=== PATIENT | female | born 1975 | race African-American/Black ===

== ENCOUNTER 2016-12-09 06:50 | Emergency (ER) | payer OTHER ==
[2016-12-09] MEDS ORDERED: PROCHLORPERAZINE EDISYLATE INJ 10 MG/2 ML VIAL IV ONE (07:04)
[2016-12-09] MEDS ORDERED: DIPHENHYDRAMINE HCL 50 MG/ML VIAL IV ONE (07:04)
--- NOTE | 2016-12-09 07:05 | ER Document Report ---
ED General - General Chief Complaint: Headache Stated Complaint: HEADACHE Time Seen by Provider: 12/09/16 07:04 Mode of Arrival: Ambulatory Information source: Patient Notes: 41 yr old female presents with complaints of headache that started yesterday. Pt denies any fevers or chills. Patient notes headache started yesterday was gradual in onset worsened today. Patient notes she had 2 episodes of vomiting after her vomiting episode her headache has since improved. Patient denies any visual disturbance. Patient admits she has not taken blood pressure medication in weeks but is supposed to be on multiple meds TRAVEL OUTSIDE OF THE [place] IN LAST 30 DAYS: No - HPI Onset: Yesterday Onset/Duration: Persistent, Better Quality of pain: Achy Severity: Moderate Pain Level: 3 Associated symptoms: Headache, Nausea, Vomiting Exacerbated by: Denies Relieved by: Denies Similar symptoms previously: Yes Recently seen / treated by doctor: No - Related Data Allergies/Adverse Reactions: iodine [Iodine] Allergy (Verified 12/09/16 08:13) Sulfa (Sulfonamide Antibiotics) Allergy (Verified 12/09/16 08:13) Home Medications: Current Home Medications Sitagliptin Phosphate [Januvia 25 mg Tablet] 1 tab PO DAILY 12/09/16 [History] Past Medical History - Social History Smoking Status: Never Smoker Cigarette use (# per day): No Chew tobacco use (# tins/day): No Smoking Education Provided: No Family History: Reviewed & Not Pertinent Patient has suicidal ideation: No Patient has homicidal ideation: No - Past Medical History Cardiac Medical History: Reports: Hx Hypertension Pulmonary Medical History: Reports: Hx Asthma Endocrine Medical History: Reports: Hx Diabetes Mellitus Type 2 Renal/ Medical History: Denies: Hx Peritoneal Dialysis Past Surgical History: Reports: Hx Breast Surgery - cyst removals, Hx Cholecystectomy - Immunizations Hx Diphtheria, Pertussis, Tetanus Vaccination: - unknown Review of Systems - Review of Systems Notes: REVIEW OF SYSTEMS: CONSTITUTIONAL : Denies fever, chills, or sweats. Denies recent illness. EENT: Denies eye, ear, throat, or mouth pain or symptoms. Denies nasal or sinus congestion or discharge. Denies throat, tongue, or mouth swelling or difficulty swallowing. CARDIOVASCULAR: Denies chest pain. Denies palpitations or racing or irregular heart beat. Denies ankle edema. RESPIRATORY: Denies cough, cold, or chest congestion. Denies shortness of breath, difficulty breathing, or wheezing. GASTROINTESTINAL: Admits to nausea vomiting GENITOURINARY: Denies difficulty urinating, painful urination, burning, frequency, blood in urine, or discharge. FEMALE GENITOURINARY: Denies vaginal bleeding, heavy or abnormal periods, irregular periods. Denies vaginal discharge or odor. MUSCULOSKELETAL: Denies back or neck pain or stiffness. Denies joint pain or swelling. SKIN: Denies rash, lesions or sores. HEMATOLOGIC : Denies easy bruising or bleeding. LYMPHATIC: Denies swollen, enlarged glands. NEUROLOGICAL: Admits headache PSYCHIATRIC: Denies anxiety or stress. Denies depression, suicidal ideation, or homicidal ideation. ALL OTHER SYSTEMS REVIEWED AND NEGATIVE. PHYSICAL EXAMINATION: GENERAL: Well-appearing, well-nourished and in no acute distress. HEAD: Atraumatic, normocephalic. EYES: Pupils equal round and reactive to light, extraocular movements intact, conjunctiva are normal. ENT: Nares patent, oropharynx clear without exudates. Moist mucous membranes. NECK: Normal range of motion, supple without lymphadenopathy LUNGS: Breath sounds clear to auscultation bilaterally and equal. No wheezes rales or rhonchi. HEART: Regular rate and rhythm without murmurs ABDOMEN: Soft, nontender, nondistended abdomen. No guarding, no rebound. No masses appreciated. Female : deferred Musculoskeletal: Normal range of motion, no pitting or edema. No cyanosis. NEUROLOGICAL: Cranial nerves grossly intact. Normal speech, normal gait. Normal sensory, motor exams PSYCH: Normal mood, normal affect. SKIN: Warm, Dry, normal turgor, no rashes or lesions noted. Dictation was performed using [employer] voice recognition software Physical Exam - Vital signs Vitals: Temp Pulse Resp BP Pulse Ox 98.4 F 103 H 20 192/116 H 99 12/09/16 06:50 12/09/16 06:50 12/09/16 06:50 12/09/16 06:50 12/09/16 06:50 Course - Re-evaluation Re-evalutation: 12/09/16 07:33 Patient overall looks quite well, she is noted to be hypertensive and given a complaint of headache will be sent for CT emergently. 12/09/16 08:58 Patient's headache is completely resolved, we discussed lumbar puncture patient wishes to defer at this time I spoke with the patient at length in regards to having a lumbar puncture performed. Pt was told the risks and benefits of the procedure in length. I do not believe the patient should leave without the LP being performed but the patient is alert oriented x4, understands the risks and benefits of staying and leaving including disability and . Pt understands that she can return at any time for further care and is more than welcome to do so. Patient was made aware of her hyperglycemia as well , pt will be written for her lisinpril hctz , unsure of dose After performing a Medical Screening Examination, I estimate there is LOW risk for ACUTE GLAUCOMA, TEMPORAL ARTERITIS, MENINGITIS, INCRANIAL HEMORRHAGE, or ISCHEMIC STROKE thus I consider the discharge disposition reasonable. I have reevaluated this patient multiple times and no significant life threatening changes are noted. The patient and I have discussed the diagnosis and risks, and we agree with discharging home with close follow-up with the understanding that symptoms and presentations can change. We also discussed returning to the Emergency Department immediately if new or worsening symptoms occur. We have discussed the symptoms which are most concerning (e.g., changing or worsening symptoms, new numbness or weakness, vomiting, fever) that necessitate immediate return. - Vital Signs Vital signs: Temp Pulse Resp BP Pulse Ox 98.4 F 103 H 20 192/116 H 99 12/09/16 06:50 12/09/16 06:50 12/09/16 06:50 12/09/16 06:50 12/09/16 06:50 - Laboratory Result Diagrams: 12/09/16 07:55 12/09/16 07:55 Laboratory results interpreted by me: 12/09/16 12/09/16 07:55 07:55 RDW 15.9 H BUN 4 L Creatinine 0.43 L Glucose 337 H - Diagnostic Test Radiology reviewed: Image reviewed, Reports reviewed - No acute abnormality Discharge - Discharge Clinical Impression: Hyperglycemia Hypertension Qualifiers: Hypertension type: essential hypertension Qualified Code(s): I10 - Essential ( primary) hypertension Headache Qualifiers: Headache type: unspecified Headache chronicity pattern: acute headache Intractability: not intractable Qualified Code(s): R51 - Headache Condition: Stable Disposition: HOME, SELF-CARE Instructions: Headache ([facility]) Prescriptions: Lisinopril/Hydrochlorothiazide [Lisinopril-Hctz 10-12.5 mg Tab] 1 each PO DAILY #30 tablet Referrals: LAMAR DARDEN MD [Primary Care Provider] - Follow up tomorrow
[2016-12-09] MEDS ORDERED: CLONIDINE HCL 0.1 MG TABLET PO ONE (07:25)
--- NOTE | 2016-12-09 07:42 | RADIOLOGY REPORT (SQ) ---
EXAM DESCRIPTION: CT HEAD WITHOUT COMPLETED DATE/TIME: 12/09/2016 7:31 am REASON FOR STUDY: headache COMPARISON: None. TECHNIQUE: Axial images acquired through the brain without intravenous contrast. Images reviewed wi th bone, brain and subdural windows. Images stored on PACS. All CT scanners at this facility use dose modulation, iterative reconstruction, and/or weight based d osing when appropriate to reduce radiation dose to as low as reasonably achievable (ALARA). [facility]: Dose Right [facility]: CareDose [facility]: Dose Right [facility]: Teradose 4D [facility]: AlpineReplay RADIATION DOSE: Up-to-date CT equipment and radiation dose reduction techniques were employed. CTDIv ol: 48.6 mGy. DLP: 881 mGy-cm. mGy. LIMITATIONS: None. FINDINGS: VENTRICLES: Normal size and contour. CEREBRUM: No masses. No hemorrhage. No midline shift. Normal connell/white matter differentiation. N o evidence for acute infarction. CEREBELLUM: No masses. No hemorrhage. No alteration of density. No evidence for acute infarction. EXTRAAXIAL SPACES: No fluid collections. No masses. ORBITS AND GLOBE: No intra- or extraconal masses. Normal contour of globe without masses. CALVARIUM: No fracture. PARANASAL SINUSES: No fluid or mucosal thickening. SOFT TISSUES: No mass or hematoma. OTHER: No other significant finding. IMPRESSION: NORMAL BRAIN CT WITHOUT CONTRAST. TECHNICAL DOCUMENTATION: JOB ID: [id number] Quality ID # [id number]: Final reports with documentation of one or more dose reduction techniques (e.g., Au tomated exposure control, adjustment of the mA and/or kV according to patient size, use of iterative reconstruction technique) 2010 [employer]- All Rights Reserved
[2016-12-09 08:11] LABS: ABSOLUTE EOSINOPHILS # (AUTO) 0.1 10^3/uL (0.0-0.6); ABSOLUTE LYMPHOCYTES (AUTO) 1.8 10^3/uL (0.5-4.7); ABSOLUTE MONOCYTES (AUTO) 0.4 10^3/uL (0.1-1.4); ABSOLUTE NEUT (AUTO) 7.8 10^3/uL (1.7-8.2); BASOPHILS % (AUTO) 0.3 % (0-2); EOSINOPHILS % (AUTO) 0.7 % (0-6); HEMATOCRIT 38.2 % (36.0-47.0); HEMOGLOBIN 13.1 g/dL (12.0-15.5); HGB HCT DIFFERENCE 1.1; LYMPHOCYTES % (AUTO) 17.7 % (13-45); MEAN CORPUSCULAR HGB CONC 34.4 g/dL (32.0-36.0); MEAN CORPUSCULAR VOLUME 84 fl (80-97); MONOCYTES % (AUTO) 4.4 % (3-13); RED BLOOD COUNT 4.54 10^6/uL (3.72-5.28); RED CELL DISTRIBUTION WIDTH 15.9 % (11.5-14.0); SEGMENTED NEUTROPHILS % (AUTO) 76.9 % (42-78); WHITE BLOOD COUNT 10.2 10^3/uL (4.0-10.5)
[2016-12-09 08:28] LABS: ALANINE AMINOTRANSFERASE 19 U/L (9-52); ALKALINE PHOSPHATASE 90 U/L (38-126); ANION GAP 8 (5-19); ASPARTATE AMINO TRANSFERASE 19 U/L (14-36); BILIRUBIN,DIRECT 0.3 mg/dL (0.0-0.4); BILIRUBIN,TOTAL 0.7 mg/dL (0.2-1.3); BLOOD UREA NITROGEN 4 mg/dL (7-20); CARBON DIOXIDE 29 mmol/L (22-30); CHLORIDE 100 mmol/L (98-107); CREATININE RESULT 0.43 mg/dL (0.52-1.25); GLUCOSE 337 mg/dL (75-110); POTASSIUM 4.3 mmol/L (3.6-5.0); SODIUM 137.2 mmol/L (137-145); TOTAL PROTEIN 7.2 g/dL (6.3-8.2)
[2016-12-09 08:58] VITALS: BP 167/102
== END 2016-12-09 09:13 | disposition home or self-care (01) ==
LOC: ER 06:50
DX: I10 Essential (primary) hypertension (principal); T46.4X6A Underdosing of angiotensin-converting-enzyme inhibitors, initial encounter; T50.2X6A Underdosing of carbonic-anhydrase inhibitors, benzothiadiazides and other diuretics, initial encounter; Z91.128 Patient's intentional underdosing of medication regimen for other reason; Z91.14 Patient's other noncompliance with medication regimen; E11.65 Type 2 diabetes mellitus with hyperglycemia; R51 Headache; R11.2 Nausea with vomiting, unspecified; Z88.2 Allergy status to sulfonamides
CPT/HCPCS: 99284; 96374; 96375; 36415; 85025; 80053; 70450; J1200; J0780

== ENCOUNTER → 2017-04-29 | Outpatient (CLI) | payer OTHER ==
--- NOTE | 2017-04-29 10:19 | WOMENS IMAGING REPORT ---
EXAM DESCRIPTION: TRANSVAGINAL ULTRASOUND COMPLETED DATE/TIME: 04/29/2017 8:20 am REASON FOR STUDY: N92.0 Z12.31 ENCNTR SCREEN MAMMOGRAM FOR MALIGNANT NEOPLASM OF AFSHIN N92.0 EXCESSI VE AND FREQUENT MENSTRUATION WITH REGULAR CYCLE LMP 04/09/2017 COMPARISON: 09/02/2015 TECHNIQUE: Dynamic and static grayscale images acquired of the pelvis via transvaginal approach and recorded on PACS. Additional selected color Doppler and spectral images recorded. LIMITATIONS: None. FINDINGS: UTERUS: Contour normal. No mass. ENDOMETRIAL STRIPE: No focal or generalized thickening. No masses. CERVIX: A nabothian cyst is present. RIGHT OVARY: No masses. Ovary is somewhat prominent in size but appears to be relatively heterogeneo us but slightly hyperechoic. RIGHT OVARY DOPPLER: Normal arterial vascular flow without evidence for torsion. LEFT OVARY: No masses. LEFT OVARY DOPPLER: Normal arterial vascular flow without evidence for torsion. FREE FLUID: None noted. OTHER: No other significant finding. MEASUREMENTS: UTERUS: 9.7 x 4.9 x 5.3 cm. ENDOMETRIAL STRIPE: 7.5 mm. RIGHT OVARY: 5.1 x 4.8 x 4.4 cm. LEFT OVARY: 2.9 x 2.1 x 2.2 cm. IMPRESSION: The right ovary is somewhat prominent. No cysts are seen. No definable ovarian masses s een. Consider CT of the pelvis for further evaluation. TECHNICAL DOCUMENTATION: JOB ID: [id number] [employer]- All Rights Reserved
--- NOTE | 2017-04-29 11:18 | WOMENS IMAGING REPORT ---
EXAM DESCRIPTION: 3D SCREENING MAMMO BILAT COMPLETED DATE/TIME: 04/29/2017 7:45 am REASON FOR STUDY: ROUTINE SCREENING Z12.31 Z12.31 ENCNTR SCREEN MAMMOGRAM FOR MALIGNANT NEOPLASM OF AFSHIN N92.0 EXCESSIVE AND FREQUENT MENSTRUATION WITH REGULAR CYCLE COMPARISON: 2013 TECHNIQUE: Standard craniocaudal and mediolateral oblique views of each breast recorded using digita l acquisition and breast tomosynthesis. LIMITATIONS: None. FINDINGS: No masses, calcifications or architectural distortion. No areas of suspicion. Read with the assistance of CAD. .[facility] - R2 Cenova Version 1.3 .[facility] - R2 Cenova Version 1.3 .[facility] - R2 Cenova Version 2.4 .[facility] [place] - R2 Cenova Version 2.4 .[facility] - R2 Research And Evaluation Analyst Version 9.2 IMPRESSION: NORMAL MAMMOGRAM. BIRADS 1. BREAST DENSITY: b. There are scattered areas of fibroglandular density. BIRAD: 1 NEGATIVE RECOMMENDATION: ROUTINE SCREENING COMMENT: The patient has been notified of the results by letter per MQSA requirements. Additional no tification policies are in place for contacting patient with suspicious or incomplete findings. Quality ID #[id number]: The [employer] recommends an annual screening mammogram for women aged 40 years or over. This facility utilizes a reminder system to ensure that all patients receive reminder letters, and/or direct phone calls for appointments. This includes reminders for routine scr eening mammograms, diagnostic mammograms, or other Breast Imaging Interventions when appropriate. Th is patient will be placed in the appropriate reminder system. The [employer] (ACR) has developed recommendations for screening MRI of the breast s in certain patient populations, to be used in conjunction with mammography. Breast MRI surveillanc e may be appropriate for women with more than 20% lifetime risk of developing breast cancer as deter mined by genetic testing, significant family history of the disease, or history of mantle radiation f or Hodgkins Disease. ACR Practice Guidelines 2008. DBT Technology DBT is a type of tomographic mammography. With conventional mammography, overlapping breast tissue ma y make lesions difficult to detect, even with good compression. DBT uses an x-ray tube that rotates a round the breast, taking images at different angles. These images are then combined to create thin sl ices of the breast that the radiologist can view as a 3D reconstruction. The [employer] unit can perform full-field digital mammograms (2D imaging); or DBT (3D imaging); or both, in a combination mode that quickly performs both the mammogram and the tomosynthesis scan while the breast is still compressed. PQRS 6045F: Fluoroscopic imaging is not utilized for breast tomosynthesis. TECHNICAL DOCUMENTATION: FINDING NUMBER: (1) ASSESSMENT: (1) JOB ID: [id number] [employer]- All Rights Reserved
== END ==
LOC: WI 07:42
PROVIDERS: ATTEND Physician Assistant
DX: Z12.31 Encounter for screening mammogram for malignant neoplasm of breast (principal); N92.0 Excessive and frequent menstruation with regular cycle
CPT/HCPCS: 77063; 76830; G0202; 77067

== ENCOUNTER 2017-06-11 07:02 | Emergency (ER) | payer OTHER ==
--- NOTE | 2017-06-11 08:03 | ER Document Report ---
HPI - HPI Pain Level: 4 Notes: Patient is a 41-year-old female with a history of hypertension and type 2 diabetes who presents to the ED complaining of nasal congestion/discharge, subjective fever, chills, body ache, decreased p.o. intake, loose stool over the last couple days. Patient states that she has not noticed much of a cough. She is still able to intake fluids. She is urinating normally otherwise. She has not been using any [id number] meds for symptoms. Patient states that she was sent home from work and needs a work note to go back tomorrow which is her main reason of coming in. Patient states she has been exposed to multiple illnesses at the workplace. Denies any headache, current fever, neck pain, sore throat, chest pain, palpitations, syncope, cough, shortness of breath , wheeze, dyspnea, abdominal pain, nausea/vomiting, urinary retention, dysuria, hematuria, numbness/tingling, saddle anesthesia, muscle paralysis/weakness, or rash. - ROS Systems Reviewed and Negative: Yes All other systems reviewed and negative - CONSTITUTIONAL Constitutional: REPORTS: Fever, Chills - EENT EENT: REPORTS: Sore Throat Past Medical History - Social History Smoking Status: Current Every Day Smoker Frequency of alcohol use: None Drug Abuse: None Family History: Reviewed & Not Pertinent Patient has suicidal ideation: No Patient has homicidal ideation: No - Past Medical History Cardiac Medical History: Reports: Hx Hypertension Pulmonary Medical History: Reports: Hx Asthma Endocrine Medical History: Reports: Hx Diabetes Mellitus Type 2 Renal/ Medical History: Denies: Hx Peritoneal Dialysis Past Surgical History: Reports: Hx Breast Surgery - cyst removals, Hx Cholecystectomy - Immunizations Hx Diphtheria, Pertussis, Tetanus Vaccination: - unknown Vertical Provider Document - CONSTITUTIONAL Agree With Documented VS: Yes Notes: PHYSICAL EXAMINATION: GENERAL: Well-appearing, well-nourished and in no acute distress. A&Ox4 HEAD: Atraumatic, normocephalic. EYES: Pupils equal round and reactive to light, extraocular movements intact, sclera anicteric, conjunctiva are normal. ENT: EAC clear b/l. TM's intact b/l without erythema, fluid, or perforation. Nares patent and with clear discharge. oropharynx mild erythema without exudates. 1+ tonsilar hypertrophy without erythema or exudate. No palatine shift. Uvula midline. No tongue protrusion. No drooling, hoarseness, or airway compromise. Moist mucous membranes. No sinus tenderness. NECK: Normal range of motion, supple without lymphadenopathy. No rigidity/ meningismus. LUNGS: Breath sounds clear to auscultation bilaterally and equal. No wheezes rales or rhonchi. HEART: Regular rate and rhythm without murmurs, rubs, gallops. ABDOMEN: Soft, nontender, nondistended abdomen. No guarding, no rebound. No masses appreciated. Normal bowel sounds present. No CVA tenderness bilaterally. No hepatosplenomegaly. Back: FROM. Strength 5+/5. No focal deficits distal. Reflexes 2+. SLR neg b/l. NEUROLOGICAL: Normal speech, normal gait. Normal sensory, motor exams PSYCH: Normal mood, normal affect. SKIN: Warm, Dry, normal turgor, no rashes or lesions noted. - INFECTION CONTROL TRAVEL OUTSIDE OF THE [place] IN LAST 30 DAYS: No - RESPIRATORY O2 Sat by Pulse Oximetry: 99 Course - Re-evaluation Re-evalutation: 06/11/17 08:38 Patient is an afebrile, well-hydrated, 41-year-old female who presents to the ED with an acute URI, suspect viral at this time. Vitals are stable. PE is otherwise unremarkable. Rapid influenza was negative. No other labs or imaging warranted at this time based on H&P. Work note provided. Low suspicion for any ACS, PE, pneumothorax, pericarditis, dissection, respiratory compromise, severe dehydration, sepsis, meningitis, or other systemic emergent condition at this time. Patient is aware that her condition can change from initial presentation and she needs to monitor symptoms closely and seek medical attention for any acute changes. Recommend conservative measures for symptoms. Recheck with your PCM in 3-5 days. Return to the ED with any worsening/ concerning symptoms otherwise as reviewed in discharge. Patient is in agreement. - Vital Signs Vital signs: Temp Pulse Resp BP Pulse Ox 98.6 F 106 H 18 196/111 H 99 06/11/17 07:24 06/11/17 07:24 06/11/17 07:30 06/11/17 07:30 06/11/17 07:30 Discharge - Discharge Clinical Impression: Acute URI Condition: Stable Disposition: HOME, SELF-CARE Instructions: Upper Respiratory Illness ([facility]) Additional Instructions: Maintain adequate fluid intake Take meds as directed tylenol/ibuprofen as needed Monitor for any worsening symptoms over the counter cold medication as needed for symptoms Humidified air may help F/u: with your PCM in 3-5 days for a recheck Return to the ED with any fever, worsening pain, chest pain, palpitations, syncope, worsening [place], neck pain/stiffness, shortness of breath, wheezing, drooling, trouble swallowing/breathing, abdominal pain, n/v/d, rash, or worsening/concerning symptoms otherwise. Forms: Elevated Blood Pressure, Smoking Cessation Education, Return to Work Referrals: LAMAR DARDEN MD [Primary Care Provider] - Follow up in 3-5 days
[2017-06-11 08:34] LABS: A TYPE INFLUENZA AG NEGATIVE (NEGATIVE); B INFLUENZA AG NEGATIVE (NEGATIVE)
[2017-06-11 09:16] VITALS: BP 144/107
== END 2017-06-11 09:07 | disposition home or self-care (01) ==
LOC: ER 07:02
DX: J06.9 Acute upper respiratory infection, unspecified (principal); M79.1 Myalgia; I10 Essential (primary) hypertension; E11.9 Type 2 diabetes mellitus without complications; F17.200 Nicotine dependence, unspecified, uncomplicated; Z90.49 Acquired absence of other specified parts of digestive tract
CPT/HCPCS: 87804; 99283

== ENCOUNTER 2017-07-27 07:40 | Emergency (ER) | payer SELFPAY ==
--- NOTE | 2017-07-27 08:02 | ER Document Report ---
ED General - General Chief Complaint: Toe Injury Stated Complaint: TOE INJURY Time Seen by Provider: 07/27/17 07:52 Mode of Arrival: Wheelchair Information source: Patient TRAVEL OUTSIDE OF THE [place] IN LAST 30 DAYS: No - HPI Notes: 42-year-old female with history of diabetes presents today with complaints of having right pinky toe pain that started after she accidentally dropped a table on it 4 days ago, states she reinjured it yesterday when she accidentally stubbed her toe again on the door. Reports pain is 5 out of 10, throbbing achy. Worse with movement, better at rest. Has not tried any icing or heat, has tried awnb-yrd-flslfrz ibuprofen with some relief. Unable to place complete weight on foot. Denies any other area of injury. Denies fevers, chills, chest pain,palpitations, shortness of breath, dyspnea, nausea, vomiting, diarrhea, abdominal pain, hematuria,blurred vision, double vision, loss of vision, speech changes, LH, dizziness, syncope, headaches, wheezing, ST , URI, neck pain, weakness, bowel or bladder dysfunction, saddle anesthesia, numbness or tingling in bilateral upper or lower extremities equally, muscle paralysis, weakness in bilateral upper or lower extremities equally or rash. Denies IV drug use. - Related Data Allergies/Adverse Reactions: iodine [Iodine] Allergy (Verified 07/27/17 07:44) Penicillins Allergy (Verified 07/27/17 07:44) Sulfa (Sulfonamide Antibiotics) Allergy (Verified 07/27/17 07:44) Past Medical History - General Information source: Patient - Social History Smoking Status: Never Smoker Family History: Reviewed & Not Pertinent - Past Medical History Cardiac Medical History: Reports: Hx Hypertension Pulmonary Medical History: Reports: Hx Asthma Endocrine Medical History: Reports: Hx Diabetes Mellitus Type 2 Renal/ Medical History: Denies: Hx Peritoneal Dialysis Past Surgical History: Reports: Hx Breast Surgery - cyst removals, Hx Cholecystectomy - Immunizations Hx Diphtheria, Pertussis, Tetanus Vaccination: - unknown Review of Systems - Review of Systems Notes: REVIEW OF SYSTEMS: CONSTITUTIONAL : Denies fever, chills, or sweats. Denies recent illness. EENT: Denies eye, ear, throat, or mouth pain or symptoms. Denies nasal or sinus congestion or discharge. Denies throat, tongue, or mouth swelling or difficulty swallowing. CARDIOVASCULAR: Denies chest pain. Denies palpitations or racing or irregular heart beat. Denies ankle edema. RESPIRATORY: Denies cough, cold, or chest congestion. Denies shortness of breath, difficulty breathing, or wheezing. GASTROINTESTINAL: Denies abdominal pain or distention. Denies nausea, vomiting , or diarrhea. Denies blood in vomitus, stools, or per rectum. Denies black, tarry stools. Denies constipation. GENITOURINARY: Denies difficulty urinating, painful urination, burning, frequency, blood in urine, or discharge. FEMALE GENITOURINARY: Denies vaginal bleeding, heavy or abnormal periods, irregular periods. Denies vaginal discharge or odor. MUSCULOSKELETAL: Denies back or neck pain or stiffness. Denies joint pain or swelling. SKIN: right 5th toe swelling and pain. Denies rash, lesions or sores. HEMATOLOGIC : Denies easy bruising or bleeding. LYMPHATIC: Denies swollen, enlarged glands. NEUROLOGICAL: Denies confusion or altered mental status. Denies passing out or loss of consciousness. Denies dizziness or lightheadedness. Denies headache. Denies weakness or paralysis or loss of use of either side. Denies problems with gait or speech. Denies sensory loss, numbness, or tingling. Denies seizures. PSYCHIATRIC: Denies anxiety or stress. Denies depression, suicidal ideation, or homicidal ideation. ALL OTHER SYSTEMS REVIEWED AND NEGATIVE. PHYSICAL EXAMINATION: GENERAL: Well-appearing, well-nourished and in no acute distress. HEAD: Atraumatic, normocephalic. EYES: Pupils equal round and reactive to light, extraocular movements intact, conjunctiva are normal. ENT: Nares patent, oropharynx clear without exudates. Moist mucous membranes. NECK: Normal range of motion, supple without lymphadenopathy LUNGS: Breath sounds clear to auscultation bilaterally and equal. No wheezes rales or rhonchi. HEART: Regular rate and rhythm without murmurs ABDOMEN: Soft, nontender, nondistended abdomen. No guarding, no rebound. No masses appreciated. Female : deferred Musculoskeletal: Normal range of motion, no pitting or edema. No cyanosis. Right fifth tarsal with swelling, erythema, warmth to touch. Unable to palpate a step-off. No open lesions. squeeze test negative. dtr +2 BLE. Limited APROM. distal pulses + 2 in BUE. full motor and sensory function. No vascular compromise. Ankle exam within normal limits. No noted lacerations, lesions, ulcers or break in the skin. Cap refill less than 3 seconds. Full motor and sensory function in LISA. DTRs +2 in bilateral lower extremities equally. No deformity noted of right ankle, foot or toe. Negative kanavels sign. No open wounds or drainage from toe or foot. No vascular compromise. NEUROLOGICAL: Cranial nerves grossly intact. Normal speech, normal gait. Normal sensory, motor exams PSYCH: Normal mood, normal affect. SKIN: Warm, Dry, normal turgor, no rashes or lesions noted. Dictation was performed using [employer] voice recognition software Physical Exam - Vital signs Vitals: Temp Pulse Resp BP Pulse Ox 98.8 F 114 H 18 191/110 H 99 07/27/17 07:45 07/27/17 07:45 07/27/17 07:45 07/27/17 07:45 07/27/17 07:45 Course - Re-evaluation Re-evalutation: 07/27/17 09:21 42-year-old healthy-appearing female presents with right toe pain after trauma to right fifth toe. she is afebrile. See negative for any acute fracture on right foot. The erythema around toe, with induration went to touch will treat for developing cellulitis.Dr. Darion Odonnell, ER attending at bedside at 0915 for further evaluation due to swelling and pain with toe movement. Denies that this patient does not need any orthopedic immediate evaluation at this time. Marked area where redness appeared on right fifth toe, advised patient if redness extends outside of this area to return to the emergency room as soon as possible. We will start her on oral clindamycin, 300 mg every 6 hours for cellulitis. Take vonn-mjb-umzihtx ibuprofen and Tylenol as needed for pain she given a postop shoe to help displace weight on the foot. Outpatient follow-up with material control specialist within 3 days. Follow-up with primary care provider within 3 days. She is blood pressure came down as well as heart rate. Patient stated she took her blood pressure this morning had not kicked in when she first came to the emergency room. Patient was discharged home with strict instructions to return if any pain becomes worse, any increased swelling, any fevers or chills, etc. to return to the emergency room as soon as possible.She verbalized understanding of this plan of care and agreed with plan of care. She was discharged home without incident. After performing a Medical Screening Examination, I estimate there is LOW risk for CLOSED/OPEN FRACTURE, COMPARTMENT SYNDROME, TENDON RUPTURE, ACUTE NEUROVASCULAR INJURY, or RETAINED FOREIGN BODY, thus I consider the discharge disposition reasonable. Also, there is no evidence or peritonitis, sepsis, or toxicity. I have reevaluated this patient multiple times and no significant life threatening changes are noted. The patient and I have discussed the diagnosis and risks, and we agree with discharging home with close follow-up with the understanding that symptoms and presentations can change. We also discussed returning to the Emergency Department immediately if new or worsening symptoms occur. We have discussed the symptoms which are most concerning (e.g., changing or worsening pain, fever, numbness, weakness, cool or painful digits) that necessitate immediate return. - Vital Signs Vital signs: Temp Pulse Resp BP Pulse Ox 98.5 F 85 18 155/102 H 99 07/27/17 09:19 07/27/17 09:19 07/27/17 09:19 07/27/17 09:19 07/27/17 09:19 Discharge - Discharge Clinical Impression: Cellulitis of toe of right foot Condition: Good Disposition: HOME, SELF-CARE Instructions: Cellulitis ([facility]) Additional Instructions: CELLULITIS: You have an infection of your skin and underlying soft tissues called cellulitis. This is due to bacteria, which can enter through any break in the skin, or even through an irritated hair follicle. Untreated, cellulitis will usually worsen. Antibiotics are required. Usually, warm packs or warm soaks, and elevation of the infected area are recommended. You should start getting better within 24 to 36 hours. Most infections respond quickly to the right medication. Follow-up care is important, however, to check for abscess (boil) formation, unsuspected foreign body, or resistant infection. If you develop fever, chills, or if the area of infection is becoming rapidly more swollen or painful, call the doctor at once. MRSA CELLULITIS: You have an infection of your skin and underlying soft tissues called cellulitis. This is due to bacteria, which can enter through any break in the skin, or even through an irritated hair follicle. Untreated, cellulitis will usually worsen and may form an abscess which requires draining. Although many bacterial organisms can cause cellulitis and abscess formations, the most likely bacteria is Methicillin-Resistant Staph Aureus, or MRSA for short. Antibiotics are required. Usually, warm packs or warm soaks, and elevation of the infected area are recommended. You should start getting better within 24 to 36 hours. Most infections respond quickly to the right medication. Follow-up care is important, however, to check for abscess (boil) formation, unsuspected foreign body, or resistant infection. If you develop fever, chills, or if the area of infection is becoming rapidly more swollen or painful, call the doctor at once. ANTIBIOTIC THERAPY: You have been given an antibiotic prescription. It's important that you take all the medication, unless instructed otherwise by your physician. Failure to complete the entire course can result in relapse of your condition. Common side effects of antibiotics include nausea, intestinal cramping, or diarrhea. Women may develop vaginal yeast infections, and babies can get yeast (thrush) in the mouth following the use of antibiotics. Contact your physician if you develop significant side effects from this medication. Allergy to this antibiotic can result in hives, wheezing, faintness, or itching. If symptoms of allergy occur, stop the medication and call the doctor. CLINDAMYCIN: You have been given a prescription for the antibiotic clindamycin. It is often prescribed for infections in the mouth, such as dental infections or abscesses, and for skin infections due to MRSA. It's important that you take all the medication, unless instructed otherwise by your physician. Failure to complete the entire course can result in relapse of your condition. Common side effects of antibiotics include nausea, intestinal cramping, or diarrhea. Women may develop vaginal yeast infections, and babies can get yeast (thrush) in the mouth following the use of antibiotics. Contact your physician if you develop significant side effects from this medication. Allergy to this antibiotic can result in hives, wheezing, faintness, or itching. If symptoms of allergy occur, stop the medication and call the doctor. If redness extends out of marked area, any fevers or chills, worsening pain, increased swelling, etc. return to the emergency room immediately. FOLLOW-UP CARE: If you have been referred to a physician for follow-up care, call the physician s office for an appointment as you were instructed or within the next two days. If you experience worsening or a significant change in your symptoms, notify the physician immediately or return to the Emergency Department at any time for re-evaluation. Return immediately for any new or worsening symptoms. Follow up with primary care provider, call tomorrow to make followup appointment. Prescriptions: Clindamycin HCl 300 mg PO Q6H #28 capsule Forms: Return to Work Referrals: TIERNEY PEÑA DO [ACTIVE STAFF] - Follow up in 3-5 days EMEKA NOLASCO MD [ACTIVE STAFF] - Follow up in 3-5 days
--- NOTE | 2017-07-27 08:29 | RADIOLOGY REPORT (SQ) ---
EXAM DESCRIPTION: FOOT RIGHT COMPLETE COMPLETED DATE/TIME: 07/27/2017 8:18 am REASON FOR STUDY: trauma to right foot COMPARISON: None. NUMBER OF VIEWS: Three views. TECHNIQUE: AP, lateral and oblique radiographic images acquired of the right foot. LIMITATIONS: None. FINDINGS: MINERALIZATION: Normal. BONES: No acute fracture or dislocation. No worrisome bone lesions. JOINTS: No effusions. SOFT TISSUES: No soft tissue swelling. No foreign body. OTHER: Large posterior heel spur reflected by calcification at the insertion of the Achilles tendon. IMPRESSION: No acute posttraumatic changes. Large heel spur TECHNICAL DOCUMENTATION: JOB ID: [id number] [employer]- All Rights Reserved Reading location - IP/workstation name: [email or web address]
[2017-07-27] MEDS ORDERED: CLINDAMYCIN HCL 150 MG CAPSULE PO ONE (08:46)
[2017-07-27] MEDS ORDERED: HYDROCODONE/ACETAMINOPHEN 5-325 MG (6 TAB/ER DISP) PO PRN (09:17)
[2017-07-27 09:21] VITALS: BP 155/102
== END 2017-07-27 09:35 | disposition home or self-care (01) ==
LOC: ER 07:40
DX: L03.031 Cellulitis of right toe (principal); E11.9 Type 2 diabetes mellitus without complications; J45.909 Unspecified asthma, uncomplicated; I10 Essential (primary) hypertension; Z79.899 Other long term (current) drug therapy; Z88.0 Allergy status to penicillin; Z88.2 Allergy status to sulfonamides
CPT/HCPCS: 99283

== ENCOUNTER 2017-11-07 07:57 | Emergency (ER) | payer OTHER ==
[2017-11-07 08:05] VITALS: BP 177/93
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
== END 2017-11-07 08:51 | disposition home or self-care (01) ==
LOC: ER 07:57
DX: M79.1 Myalgia (principal); M54.6 Pain in thoracic spine; M79.601 Pain in right arm; M79.602 Pain in left arm; V87.7XXA Person injured in collision between other specified motor vehicles (traffic), initial encounter; I10 Essential (primary) hypertension; J45.909 Unspecified asthma, uncomplicated; E11.9 Type 2 diabetes mellitus without complications
CPT/HCPCS: 99283

== ENCOUNTER 2018-01-29 09:12 | Emergency (ER) | payer OTHER ==
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
[2018-01-29 09:22] VITALS: BP 193/109
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
== END 2018-01-29 10:19 | disposition home or self-care (01) ==
LOC: ER 09:12
DX: S92.531A Displaced fracture of distal phalanx of right lesser toe(s), initial encounter for closed fracture (principal); S91.204A Unspecified open wound of right lesser toe(s) with damage to nail, initial encounter; W22.8XXA Striking against or struck by other objects, initial encounter; E11.9 Type 2 diabetes mellitus without complications
CPT/HCPCS: 99283

== ENCOUNTER 2018-05-14 09:29 | Emergency (ER) | payer OTHER ==
[2018-05-14] MEDS ORDERED: SITAGLIPTIN PHOSPHATE 50 MG TABLET PO ONE (09:56)
[2018-05-14] MEDS ORDERED: HYDROCHLOROTHIAZIDE 25 MG TABLET PO ONE (09:56)
[2018-05-14] MEDS ORDERED: CLONIDINE HCL 0.1 MG TABLET PO ONE (09:57)
[2018-05-14] MEDS ORDERED: AMLODIPINE BESYLATE 5 MG TABLET PO ONE (09:57)
--- NOTE | 2018-05-14 10:02 | ER Document Report ---
ED Medical Screen (RME) - General Chief Complaint: Skin Sore(s) Stated Complaint: FOOT PAIN Time Seen by Provider: 05/14/18 09:45 Mode of Arrival: Ambulatory Information source: Patient TRAVEL OUTSIDE OF THE [place] IN LAST 30 DAYS: No - HPI Patient complains to provider of: foot blister Onset: Other - 42-year-old female with a history of diabetes mellitus as well as hypertension and peripheral neuropathy that presents for evaluation of a blister on the left foot which developed over the last day. She notes that she felt a pressure on the outside of the foot. She has had recurrently developed ulcers and blisters on the toes. She denies fevers or chills. Denies any other medical problems at this time. Her complaints. - Related Data Allergies/Adverse Reactions: iodine [Iodine] Allergy (Verified 05/14/18 09:29) Penicillins Allergy (Verified 05/14/18 09:29) Sulfa (Sulfonamide Antibiotics) Allergy (Verified 05/14/18 09:29) Past Medical History - General Information source: Patient - Social History Cigarette use (# per day): No Chew tobacco use (# tins/day): No Drug Abuse: None Lives with: Alone Family history: None - Past Medical History Cardiac Medical History: Reports: Hx Hypertension Pulmonary Medical History: Reports: Hx Asthma Endocrine Medical History: Reports: Hx Diabetes Mellitus Type 2 Renal/ Medical History: Denies: Hx Peritoneal Dialysis Past Surgical History: Reports: Hx Breast Surgery - cyst removals, Hx Cholecystectomy - Immunizations Hx Diphtheria, Pertussis, Tetanus Vaccination: - unknown Review of Systems - Review of Systems -: Yes All other systems reviewed and negative Physical Exam - Vital signs Vitals: Temp Pulse Resp BP Pulse Ox 98.6 F 106 H 20 221/113 H 98 05/14/18 09:37 05/14/18 09:37 05/14/18 09:37 05/14/18 09:37 05/14/18 09:37 Interpretation: Normal - General General appearance: Appears well, Alert - HEENT Head: Normocephalic, Atraumatic Eyes: Normal Pupils: PERRL - Respiratory Respiratory status: No respiratory distress Chest status: Nontender Breath sounds: Normal Chest palpation: Normal - Cardiovascular Rhythm: Regular Heart sounds: Normal auscultation Murmur: No - Abdominal Inspection: Normal Distension: No distension Bowel sounds: Normal Tenderness: Nontender Organomegaly: No organomegaly - Back Back: Normal, Nontender - Extremities General upper extremity: Normal inspection, Nontender, Normal color, Normal ROM, Normal temperature General lower extremity: Other - Over the lateral aspect just inferior to the lateral malleolus is a blister which is approximately 3 x 3 cm in size. - Neurological Neuro grossly intact: Yes Cognition: Normal Orientation: AAOx4 [place] Coma Scale Eye Opening: Spontaneous [place] Coma Scale Verbal: Oriented Jc Coma Scale Motor: Obeys Commands [place] Coma Scale Total: 15 Speech: Normal Motor strength normal: LUE, RUE, LLE, RLE Sensory: Normal - Psychological Associated symptoms: Normal affect, Normal mood - Skin Skin Temperature: Warm Skin Moisture: Dry Skin Color: Normal Course - Re-evaluation Re-evalutation: 42-year-old female with diabetes as well as hypertension the presents for evaluation of an ulcer on the left foot. She has had multiple episodes of blisters in the past and this is similar to those. On examination she has a large blister over the left lateral aspect of the foot is approximately 4 cm x 4 cm in size. She also of note has a profoundly elevated blood pressure. She has been untreated for her blood pressure as well as her hyperglycemia for the last year because of an insurance coverage lapsed. We discussed the importance of her changing her footwear, she wears shoes which are matted down without any socks. Because of her neuropathy this causes recurrent episodes of blisters and ulcers in the feet. She was dosed with her home antihypertensive regimen. She will be dosed with an anti-glycemic. The blister on the lateral aspect of the foot was incised and drained using sterile fashion. An bandage was placed and expectant management was given. She was discharged with return precaution and encouraged to follow-up with her primary prior to discharge her blood pressure was noted to be downtrending, stated that she had no complaints and was feeling okay. - Vital Signs Vital signs: Temp Pulse Resp BP Pulse Ox 98.4 F 93 18 174/102 H 98 05/14/18 11:16 05/14/18 11:16 05/14/18 11:16 05/14/18 11:16 05/14/18 11:16 Procedures - Incision and Drainage Left Lateral Foot Type: Simple Blade size: 11 I&D procedure: Betadine prep applied Incision Method: Incision made by scalpel Amount/type of drainage: 14cc, serous, unroofing of blister Doctor's Discharge - Discharge Clinical Impression: Blister, Neuropathy Hypertension Qualifiers: Hypertension type: unspecified Qualified Code(s): I10 - Essential (primary) hypertension Diabetes Qualifiers: Diabetes mellitus type: other specified (including [place]) Diabetes mellitus computer terminal operator insulin use: without computer terminal operator use Diabetes mellitus complication status: with unspecified complications Qualified Code(s): E13.8 - Other specified diabetes mellitus with unspecified complications Condition: Good Disposition: HOME, SELF-CARE Instructions: Diabetes ([facility]), High Blood Pressure, Requiring Treatment ([facility]), Neuropathy ([facility]) Additional Instructions: You were seen today in the emergency department for the blister on her foot. The blister is a result of your peripheral neuropathy. You had an evaluation including a physical exam, medications, and a drainage of this blister. It is very important that you wear socks with her shoes, you should not wear any shoes without socks. Because of your neuropathy it is very important that you check your feet at least once a day for any blisters or injuries. You need to get a new primary doctor as soon as possible. You have been given a prescription for blood pressure medication as well as diabetes medication. You need a blood pressure recheck this week. Return to the emergency room if you have any lightheadedness, chest pain, strokelike symptoms, fevers chills or redness around the site. Keep the blister clean and dry for the next 24 hours. Change the dressing once a day. Prescriptions: Amlodipine Besylate [Norvasc 10 mg Tablet] 10 mg PO DAILY #30 tablet Hydrochlorothiazide [Hydrodiuril 25 mg Tablet] 25 mg PO QAM #30 tablet Sitagliptin Phosphate [Januvia 50 mg Tablet] 50 mg PO DAILY #30 tablet Forms: Elevated Blood Pressure Referrals: YENNY PATEL MD [ACTIVE STAFF] - Follow up as needed
[2018-05-14 11:20] VITALS: BP 174/102
== END 2018-05-14 11:26 | disposition home or self-care (01) ==
LOC: ER 09:29
PROC: 0H9NXZZ Drainage of Left Foot Skin, External Approach (ICD-10-PCS; principal; 2018-05-14)
DX: S90.822A Blister (nonthermal), left foot, initial encounter (principal); X58.XXXA Exposure to other specified factors, initial encounter; E11.42 Type 2 diabetes mellitus with diabetic polyneuropathy; I10 Essential (primary) hypertension; Z88.0 Allergy status to penicillin; Z88.2 Allergy status to sulfonamides; J45.909 Unspecified asthma, uncomplicated
CPT/HCPCS: 99283

== ENCOUNTER 2018-05-28 11:34 | Emergency (ER) | payer OTHER ==
[2018-05-28] MEDS ORDERED: METFORMIN HCL 500 MG TABLET PO ONE (12:15)
[2018-05-28] MEDS ORDERED: CLINDAMYCIN HCL 150 MG CAPSULE PO ONE (12:16)
--- NOTE | 2018-05-28 12:37 | ER Document Report ---
ED Wound - General Chief Complaint: Incision Problem Stated Complaint: LEFT FOOT PAIN Time Seen by Provider: 05/28/18 12:14 Information source: Patient Notes: Patient is a 42-year-old diabetic female who presented around 2 weeks ago with a left lateral foot "blister". She believes it was secondary to shoes. No fevers or vomiting. Pain with ambulation. She states she had the cyst incised and was discharged home on . Patient however states that her new insurance would not accept this prescription without her primary care physician writing the prescription. She currently is in transition and does not have a primary care physician despite having insurance. Patient states that the pain has persisted. She was not provided antibiotics at discharge. She again denies any fevers or vomiting. She states a mild swelling to the left side of the foot. She denies any white or purulent drainage. TRAVEL OUTSIDE OF THE [place] IN LAST 30 DAYS: No - HPI Patient complains to provider of: Other - See above Quality of pain: Achy Severity: Mild Pain Level: 1 Context: Other Skin Color: Other Capillary refill: < 3 seconds Sensations intact: Yes Distal pulses present: Yes Associated Symptoms: Other - See above - Related Data Allergies/Adverse Reactions: iodine [Iodine] Allergy (Verified 05/14/18 09:29) Penicillins Allergy (Verified 05/14/18 09:29) Sulfa (Sulfonamide Antibiotics) Allergy (Verified 05/14/18 09:29) Past Medical History - Social History Smoking Status: Former Smoker Family History: Reviewed & Not Pertinent Patient has suicidal ideation: No Patient has homicidal ideation: No - Past Medical History Cardiac Medical History: Reports: Hx Hypertension Pulmonary Medical History: Reports: Hx Asthma Endocrine Medical History: Reports: Hx Diabetes Mellitus Type 2 Renal/ Medical History: Denies: Hx Peritoneal Dialysis Past Surgical History: Reports: Hx Breast Surgery - cyst removals, Hx Cholecystectomy - Immunizations Hx Diphtheria, Pertussis, Tetanus Vaccination: - unknown Physical Exam - Vital signs Vitals: Temp Pulse Resp BP Pulse Ox 98.2 F 105 H 18 182/107 H 100 05/28/18 11:41 05/28/18 11:41 05/28/18 11:41 05/28/18 11:41 05/28/18 11:41 Notes: Reviewed vital signs and nursing note as charted by RN. CONSTITUTIONAL: Alert and oriented and responds appropriately to questions. Well-appearing; well-nourished EXT: Patient has a 4 x 2 cm area to the left lateral foot consistent with a blisterlike lesion that has already been incised. I do not detect any fluctuance, surrounding erythema, or induration. It is very slightly tender to palpation. Patient has excellent distal pulses, with capillary refill and sensation intact. There is no extension to the proximal foot or distal tibia/fibula SKIN: See above NEURO: See above PSYCH: The patient's mood and manner are appropriate. Grooming and personal hygiene are appropriate. Course - Re-evaluation Re-evalutation: 05/28/18 12:37 Given the history and physical examination, I will obtain an x-ray of the left foot to evaluate for the possibility of a foreign body or obvious osteomyelitis and most likely refer the patient to a tag press operator and/or orthopedic surgeon in place the patient on antibiotics. Given the insurance difficulty, I will provide a short course of metformin. Patient states she was previously on metformin but stopped it secondary to some intermittent diarrhea. I explained to the patient that I believe controlling her blood sugar with some intermittent diarrhea will be beneficial at least for the next 2 weeks until she is able to see her primary care physician which I will refer her to. 05/28/18 14:05 Chemistry and x-ray as recorded. No change in examination. I will start the patient on a short course of antibiotics with strict return precautions and a short course of metformin with follow-up with the emt dispatcher as well as the orthopedic surgeon. - Vital Signs Vital signs: Temp Pulse Resp BP Pulse Ox 98.2 F 105 H 18 182/107 H 100 05/28/18 11:41 05/28/18 11:41 05/28/18 11:41 05/28/18 11:41 05/28/18 11:41 - Laboratory Result Diagrams: 05/28/18 12:30 Laboratory results interpreted by me: 05/28/18 05/28/18 11:55 12:30 Carbon Dioxide 33 H Creatinine 0.50 L Glucose 245 H POC Glucose 191 H Discharge - Discharge Clinical Impression: Diabetic foot ulcer Qualifiers: Diabetic foot ulcer location: midfoot Diabetes mellitus type: type 2 Laterality: left Non-pressure ulcer stage: limited to breakdown of skin Qualified Code(s): E11.621 - Type 2 diabetes mellitus with foot ulcer; L97.421 - Non-pressure chronic ulcer of left heel and midfoot limited to breakdown of skin Condition: Good Disposition: HOME, SELF-CARE Additional Instructions: Come back immediately for any increased pain, swelling, redness, fever, vom iting, or any other acute problems. Please follow-up with the primary care physician and orthopedic surgeon as we have discussed. Prescriptions: Clindamycin HCl [Cleocin 300 mg Capsule] 300 mg PO QID #40 capsule Metformin HCl [Glucophage 500 mg Tablet] 500 mg PO BID #60 tablet Referrals: YAMILET MADRIGAL MD [ACTIVE STAFF] - Follow up as needed
--- NOTE | 2018-05-28 12:48 | RADIOLOGY REPORT (SQ) ---
EXAM DESCRIPTION: FOOT LEFT COMPLETE COMPLETED DATE/TIME: 05/28/2018 12:31 pm REASON FOR STUDY: 17; left lateral foot blister COMPARISON: None. EXAM PARAMETERS: NUMBER OF VIEWS: Three views. TECHNIQUE: AP, lateral and oblique radiographic images acquired of the left foot. LIMITATIONS: None. FINDINGS: MINERALIZATION: Normal. BONES: No acute fracture or dislocation. Plantar and posterior calcaneal spurs. . JOINTS: No effusion. SOFT TISSUES: No significant soft tissue swelling. No radiopaque foreign body. OTHER: No other significant finding. IMPRESSION: NO FRACTURE. TECHNICAL DOCUMENTATION: JOB ID: [id number] [place]-72 2010 [employer]- All Rights Reserved Reading location - IP/workstation name: ClearView™ Audio
[2018-05-28 13:06] LABS: ANION GAP 5 (5-19); BLOOD UREA NITROGEN 7 mg/dL (7-20); CARBON DIOXIDE 33 mmol/L (22-30); CHLORIDE 99 mmol/L (98-107); GLUCOSE 245 mg/dL (75-110); POTASSIUM 3.8 mmol/L (3.6-5.0); SODIUM 137.1 mmol/L (137-145)
[2018-05-28 14:20] VITALS: BP 180/94
== END 2018-05-28 14:20 | disposition home or self-care (01) ==
LOC: ER 11:34
DX: E11.621 Type 2 diabetes mellitus with foot ulcer (principal); L97.421 Non-pressure chronic ulcer of left heel and midfoot limited to breakdown of skin; T38.3X6A Underdosing of insulin and oral hypoglycemic [antidiabetic] drugs, initial encounter; Z91.128 Patient's intentional underdosing of medication regimen for other reason; Z91.14 Patient's other noncompliance with medication regimen; M79.672 Pain in left foot; Z98.890 Other specified postprocedural states; I10 Essential (primary) hypertension; J45.909 Unspecified asthma, uncomplicated; Z88.0 Allergy status to penicillin; Z88.2 Allergy status to sulfonamides; Z87.891 Personal history of nicotine dependence
CPT/HCPCS: 36415; 80048; 82962; 99283

== ENCOUNTER → 2018-06-20 | Outpatient (CLI) | payer OTHER ==
[2018-06-20 11:56] LABS: ANION GAP 8 (5-19); BLOOD UREA NITROGEN 9 mg/dL (7-20); CALCIUM 9.1 mg/dL (8.4-10.2); CARBON DIOXIDE 31 mmol/L (22-30); CHLORIDE 102 mmol/L (98-107); GLUCOSE 156 mg/dL (75-110); POTASSIUM 4.1 mmol/L (3.6-5.0); SODIUM 140.6 mmol/L (137-145); TOTAL PROTEIN 6.8 g/dL (6.3-8.2)
[2018-06-20 12:00] LABS: ALANINE AMINOTRANSFERASE 16 U/L (9-52); ALKALINE PHOSPHATASE 68 U/L (38-126); ASPARTATE AMINO TRANSFERASE 10 U/L (14-36); BILIRUBIN,DIRECT 0.2 mg/dL (0.0-0.4); BILIRUBIN,TOTAL 0.4 mg/dL (0.2-1.3); C-REACTIVE PROTEIN 14.9 mg/L (<10.0)
--- NOTE | 2018-06-21 14:58 | XCELERA REPORT ---
[address] [address] Lower Extremity Venous Evaluation Procedure: A bilateral duplex scan of the lower extremity veins was performed. The evaluation included responses to compression and other maneuvers with patient in the supine and standing positions to assess venous insufficiency. Right Sided Venous Evaluation Deep venous system evaluatiion shows patent veins with no obstruction or significant reflux identified. Sapheno Femoral junction: no reflux. Femoral vein reflux: no reflux. Greater Saphenous vein, Proximal thigh: reflux: no reflux. Greater Saphenous vein, Distal thigh: reflux: no reflux. Greater Saphenous vein, Proximal below knee: reflux: no reflux. No significant Perforators identified. Left Sided Venous Evaluation Deep venous system evaluatiion shows patent veins with no obstruction or significant reflux identified. Sapheno Femoral junction: no reflux. Femoral vein reflux: no reflux. Greater Saphenous vein, Proximal thigh: reflux: no reflux. Greater Saphenous vein, Distal thigh: reflux: no reflux. Greater Saphenous vein, Proximal below knee: reflux: no reflux. No significant Perforators identified. Interpretation Summary No duplex evidence of DVT or obstruction in the bilateral lower extremities. No significant deep or superificial reflux identified. Name: LEONCIO MATTSON Age: 42 yrs Gender: Female : 1975 Patient Status: Outpatient Patient Location: [facility] Study Date: 06/20/2018 09:44 AM Reason For Study: ULCER Ordering Physician: OLEKSANDR VIDALES Performed By: Gary Nelson : OLEKSANDR VIDALES > Vega Ray
--- NOTE | 2018-06-21 15:33 | XCELERA REPORT ---
[address] [address] Lower Extremity Arterial Evaluation Name: LEONCIO MATTSON Age: 42 yrs Gender: Female : 1975 Patient Status: Outpatient Patient Location: [facility] Study Date: 06/20/2018 09:20 AM Procedure: A color flow and duplex scan of the lower extremity arteries was performed bilaterally with velocity and waveform anaylsis. Reason For Study: ULCER Ordering Physician: OLEKSANDR VIDALES Performed By: Gary Nelson Measurements and Calculations Right Left SKIN TANNER PSV 132.7 128.9 cm/sec Prox PFA PSV -89.9 -76.1 cm/sec Prox SFA PSV 91.5 88.2 cm/sec Mid SFA PSV -118.7 -97.6 cm/sec Dist SFA PSV -102.0 -108.1cm/sec Prox Pop A PSV 93.0 62.9 cm/sec Dist CONSTANTINO PSV 95.8 113.8 cm/sec Dist [employer]ER PSV 96.5 141.1 cm/sec Patrick Pedis PSV 123.2 116.9 cm/sec Right Side Arterial Evaluation Normal velocity and triphasic waveforms noted from the Common Femoral artery to the infrageniculate vessels . Ankle Brachial index declined. Left Side Arterial Evaluation Normal velocity and triphasic waveforms noted from the Common Femoral artery to the infrageniculate vessels . Ankle Brachial index declined. Interpretation Summary No hemodynamically significant lesions in the bilateral lower extremities, on duplex imaging, at rest. : OLEKSANDR VIDALES > Vega Ray
== END ==
LOC: RAD 08:54
PROVIDERS: ATTEND Preventive Medicine Undersea and Hyperbaric Medicine
DX: E11.621 Type 2 diabetes mellitus with foot ulcer (principal); L97.422 Non-pressure chronic ulcer of left heel and midfoot with fat layer exposed
CPT/HCPCS: 36415; 80053; 83036; 85652; 86140; 93925; 93970

== ENCOUNTER 2018-06-30 23:05 | Emergency (ER) | payer OTHER ==
--- NOTE | 2018-06-30 23:26 | ER Document Report ---
ED Medical Screen (RME) - General Chief Complaint: Foot Pain Stated Complaint: FOOT PAIN Time Seen by Provider: 06/30/18 23:21 Primary Care Provider: OLEKSANDR VDIALES DPM [Primary Care Provider] - Follow up as needed Notes: 43-year-old -[place] female with diabetes coming in to have her left foot check. She had her second debridement on a pressure ulcer today at wound care clinic. Foot/leg feels like it is filling up with fluid and feels very tight and swollen. I have treated and performed a rapid initial assessment of this patient. A comprehensive ED assessment and evaluation of the patient, analysis of test results and completion of medical decision making process will be conducted by additional ED providers. PHYSICAL EXAMINATION: GENERAL: Well-appearing, well-nourished and in no acute distress. A&Ox4. Answers questions appropriately. LUNGS: Breath sounds clear to auscultation bilaterally and equal. No wheezes rales or rhonchi. LEFT LOWER EXTREMITY WITH SPECIAL DRESSING AND BOOT. TRAVEL OUTSIDE OF THE [place] IN LAST 30 DAYS: No - Related Data Allergies/Adverse Reactions: iodine [Iodine] Allergy (Verified 05/14/18 09:29) Penicillins Allergy (Verified 05/14/18 09:29) Sulfa (Sulfonamide Antibiotics) Allergy (Verified 05/14/18 09:29) Past Medical History - Social History Chew tobacco use (# tins/day): No Frequency of alcohol use: Occasional Drug Abuse: None Family history: None - Past Medical History Cardiac Medical History: Reports: Hx Hypertension Pulmonary Medical History: Reports: Hx Asthma Endocrine Medical History: Reports: Hx Diabetes Mellitus Type 2 Renal/ Medical History: Denies: Hx Peritoneal Dialysis Past Surgical History: Reports: Hx Breast Surgery - cyst removals, Hx Cholecystectomy - Immunizations Hx Diphtheria, Pertussis, Tetanus Vaccination: - unknown Physical Exam - Vital signs Vitals: Temp Pulse Resp BP Pulse Ox 98.1 F 110 H 14 178/95 H 98 06/30/18 23:10 06/30/18 23:10 06/30/18 23:10 06/30/18 23:10 06/30/18 23:10 Course - Vital Signs Vital signs: Temp Pulse Resp BP Pulse Ox 98.1 F 110 H 14 178/95 H 98 06/30/18 23:10 06/30/18 23:10 06/30/18 23:10 06/30/18 23:10 06/30/18 23:10 Doctor's Discharge - Discharge Referrals: OLEKSANDR VIDALES DPM [Primary Care Provider] - Follow up as needed
--- NOTE | 2018-07-01 01:50 | ER Document Report ---
ED General - General Chief Complaint: Foot Pain Stated Complaint: FOOT PAIN Time Seen by Provider: 06/30/18 23:21 Primary Care Provider: OLEKSANDR VIDALES DPM [ACTIVE STAFF] - Follow up as needed Notes: Patient is a 43-year-old female with a past medical history of hypertension, diabetes, chronic the left lower extremity currently be managed in wound clinic who presents complaining of severe pain related to a recent soft cast that was placed earlier today. Patient states that since the cast has been placed she has felt increasing pain, tingling and swelling to the left lower extremity from the level of the cast down. The pain is described as a burning, numbing, moderate to severe pain. Nothing seems to improve or worsen the sensation. States that she has had cast placed in the past and has never had similar discomfort. She feels like she can no longer feel her foot. She has been unable to contact the wound clinic regarding today's concerns. She came in stating that she felt like the cast needs to be removed. TRAVEL OUTSIDE OF THE [place] IN LAST 30 DAYS: No - Related Data Allergies/Adverse Reactions: iodine [Iodine] Allergy (Verified 05/14/18 09:29) Penicillins Allergy (Verified 05/14/18 09:29) Sulfa (Sulfonamide Antibiotics) Allergy (Verified 05/14/18 09:29) Past Medical History - General Information source: Patient - Social History Smoking Status: Current Every Day Smoker Chew tobacco use (# tins/day): No Frequency of alcohol use: Occasional Drug Abuse: None Lives with: Spouse/Significant other Family History: Reviewed & Not Pertinent Patient has suicidal ideation: No Patient has homicidal ideation: No - Past Medical History Cardiac Medical History: Reports: Hx Hypertension Pulmonary Medical History: Reports: Hx Asthma Endocrine Medical History: Reports: Hx Diabetes Mellitus Type 2 Renal/ Medical History: Denies: Hx Peritoneal Dialysis Past Surgical History: Reports: Hx Breast Surgery - cyst removals, Hx Cholecystectomy - Immunizations Hx Diphtheria, Pertussis, Tetanus Vaccination: - unknown Review of Systems - Review of Systems Notes: Constitutional: Negative for fever. HENT: Negative for sore throat. Eyes: Negative for visual changes. Cardiovascular: Negative for chest pain. Respiratory: Negative for shortness of breath. Gastrointestinal: Negative for abdominal pain, vomiting or diarrhea. Genitourinary: Negative for dysuria. Musculoskeletal: Positive for left leg pain Skin: Negative for rash. Neurological: Negative for headaches, weakness or numbness. 10 point ROS negative except as marked above and in HPI. Physical Exam - Vital signs Vitals: Temp Pulse Resp BP Pulse Ox 98.1 F 110 H 14 178/95 H 98 06/30/18 23:10 06/30/18 23:10 06/30/18 23:10 06/30/18 23:10 06/30/18 23:10 Interpretation: Hypertensive, Tachycardic Notes: PHYSICAL EXAMINATION: GENERAL: Well-appearing, well-nourished and in no acute distress. HEAD: Atraumatic, normocephalic. EYES: Pupils equal round and reactive to light, extraocular movements intact, sclera anicteric, conjunctiva are normal. ENT: nares patent, oropharynx clear without exudates. Moist mucous membranes. NECK: Normal range of motion, supple without lymphadenopathy LUNGS: Breath sounds clear to auscultation bilaterally and equal. No wheezes rales or rhonchi. HEART: Regular rate and rhythm without murmurs, 2+ DP pulses bilaterally ABDOMEN: Soft, nontender, normoactive bowel sounds. No guarding, no rebound. No masses appreciated. EXTREMITIES: Notable swelling above the level of cast on the left lower extremity. After cast removal the tissue appears moderately edematous although no apparent deformity. NEUROLOGICAL: No focal neurological deficits. Moves all extremities spontaneously and on command. PSYCH: Normal mood, normal affect. SKIN: Warm, Dry, normal turgor, there is a 2 x 3 cm wound at the base of the left heel with purulent drainage. Course - Re-evaluation Re-evalutation: 07/01/18 01:48 Patient presents with swelling and pain to her left distal lower extremity after placement of a soft cast in the wound clinic earlier today. Patient did have compression at the level of the cast placement with dilation of the soft tissues proximal to the level of where the cast was placed. There appeared to be associated edema. Given the patient's report of feeling loss of sensation and severe pain in the cast was removed with immediate resolution of the patient's discomfort. I suspect that the cast had been placed too tightly and was causing compressive edema and circulatory compromise. After removal the cast 2+ DP pulse palpated. Capillary refill less than 2 seconds in all digits of the affected side. Patient had wound dressing applied, will contact wound clinic in the morning for replacement of the cast. - Vital Signs Vital signs: Temp Pulse Resp BP Pulse Ox 98.1 F 94 18 124/86 H 98 07/01/18 02:01 07/01/18 02:01 07/01/18 02:01 07/01/18 02:01 07/01/18 02:01 Discharge - Discharge Clinical Impression: Cast discomfort, Cast removal Condition: Good Disposition: HOME, SELF-CARE Additional Instructions: Please follow-up with the wound clinic for replacement of the cast which had to be removed. Return for any additional concerns you may have including increased swelling, pain, edema or any other symptoms that are worrisome to you. Referrals: OLEKSANDR VIDALES DPM [ACTIVE STAFF] - Follow up as needed
[2018-07-01 02:02] VITALS: BP 124/86
== END 2018-07-01 02:02 | disposition home or self-care (01) ==
LOC: ER 23:05
DX: Z47.89 Encounter for other orthopedic aftercare (principal); M79.672 Pain in left foot; R20.0 Anesthesia of skin; R00.0 Tachycardia, unspecified; I10 Essential (primary) hypertension; E11.9 Type 2 diabetes mellitus without complications; F17.200 Nicotine dependence, unspecified, uncomplicated
CPT/HCPCS: 99282

== ENCOUNTER 2018-08-31 06:58 | Inpatient (IN) | payer OTHER ==
--- NOTE | 2018-08-31 09:38 | ER Document Report ---
ED General - General Chief Complaint: Abscess Stated Complaint: POSSIBLE CYST Time Seen by Provider: 08/31/18 09:25 Information source: Patient Notes: 43-year-old female with past medical history of diabetes who presents today with Jenna 10-day course of some pain and swelling to the right lower abdomen diagnosed "as an abscess" at the wound care center. Patient has had a history of multiple abscesses requiring incision and drainage. She has supposedly had 6 surgeries requiring operative limb intervention for abscess incision and drainage. Supposedly 4 of these were performed by Dr. Breann Ray. Patient has been treated for a left lower abdominal abscess being followed at the wound care center from around 3 to 4 weeks ago. She developed this new right lower quadrant lesion around 10 days ago. No fevers. Vomiting x2. Blood sugar especially around 180 over the last 24 hours. Patient was started on doxycycline after being evaluated to wound care center. Patient has an appointment upcoming with Dr. Breann Ray for possible further surgical intervention. She presents here for continued pain. She denies any aggravating or relieving factors. No fevers. No radiation of the pain. TRAVEL OUTSIDE OF THE [place] IN LAST 30 DAYS: No - Related Data Allergies/Adverse Reactions: iodine [Iodine] Allergy (Verified 05/14/18 09:29) Penicillins Allergy (Verified 05/14/18 09:29) Sulfa (Sulfonamide Antibiotics) Allergy (Verified 05/14/18 09:29) Past Medical History - Social History Smoking Status: Unknown if Ever Smoked Chew tobacco use (# tins/day): No Frequency of alcohol use: None Drug Abuse: None Family History: Reviewed & Not Pertinent Patient has suicidal ideation: No Patient has homicidal ideation: No - Past Medical History Cardiac Medical History: Reports: Hx Hypertension Pulmonary Medical History: Reports: Hx Asthma Endocrine Medical History: Reports: Hx Diabetes Mellitus Type 2 Renal/ Medical History: Denies: Hx Peritoneal Dialysis Past Surgical History: Reports: Hx Breast Surgery - cyst removals, Hx Cholecystectomy - Immunizations Hx Diphtheria, Pertussis, Tetanus Vaccination: - unknown Review of Systems - Review of Systems Constitutional: denies: Fever EENT: denies: Eye discharge, Nose discharge Cardiovascular: denies: Chest pain Gastrointestinal: Vomiting Genitourinary: denies: Dysuria Musculoskeletal: denies: Leg swelling Neurological/Psychological: Other - no slurred speech -: Yes All other systems reviewed and negative Physical Exam - Vital signs Vitals: Temp Pulse Resp BP Pulse Ox 98.8 F 106 H 22 H 167/94 H 98 08/31/18 06:59 08/31/18 06:59 08/31/18 06:59 08/31/18 06:59 08/31/18 06:59 Notes: Reviewed vital signs and nursing note as charted by RN. CONSTITUTIONAL: Alert and oriented and responds appropriately to questions. Well -appearing; well-nourished HEAD: Normocephalic; atraumatic CARD: Regular rate and rhythm; no murmurs; symmetric distal pulses RESP: Normal chest excursion without splinting or tachypnea; breath sounds clear and equal bilaterally; no wheezes, no rhonchi, no rales ABD/GI: Normal bowel sounds; elevated BMI; patient has an area of fluctuance and induration with surrounding erythema to the right lower abdomen. It does appear to be well demarcated but quite large in size. Patient has a resolving left lower abdominal abscess-like lesion with a very small dressing in place. No rebound or guarding. BACK: The back appears normal and is non-tender to palpation EXT: Normal ROM in all joints; non-tender to palpation; no edema SKIN: No acute lesions noted NEURO: CN 2-12 intact; 5/5 bilateral upper and lower extremity strength with sensation intact to light touch PSYCH: The patient's mood and manner are appropriate. Grooming and personal hygiene are appropriate. Course - Re-evaluation Re-evalutation: 08/31/18 09:38 Given the history and physical examination we will order basic labs including a white blood cell count and a blood sugar level. I will consult surgery given the patient's multiple surgical interventions in the past with recurrent abscesses. We will decide whether the patient requires CT scanning of the abdomen and/or operative intervention versus bedside incision and drainage. 08/31/18 11:06 The surgeon is seen and assessed the patient. He believes that the patient will need operative room intervention. Patient will be admitted to the operating room under the surgical care. He is asked me to start the patient on broad- spectrum antibiotic regimen. - Vital Signs Vital signs: Temp Pulse Resp BP Pulse Ox 98.8 F 106 H 22 H 167/94 H 98 08/31/18 06:59 08/31/18 06:59 08/31/18 06:59 08/31/18 06:59 08/31/18 06:59 - Laboratory Result Diagrams: 08/31/18 10:30 08/31/18 10:30 Laboratory results interpreted by me: 08/31/18 10:30 WBC 10.8 H Hgb 11.4 L Hct 33.6 L RDW 16.7 H Discharge - Discharge Clinical Impression: Abdominal wall abscess Condition: Fair Disposition: ADMITTED OBSERVATION Admitting Provider: Surgicalist Unit Admitted: OR
[2018-08-31] MEDS ORDERED: MORPHINE SULFATE 10 MG/ML INJ IV ONE (09:39)
[2018-08-31] MEDS ORDERED: SUCCINYLCHOLINE CHLORIDE INJ 200 MG/10 ML VIAL ONE (10:49)
[2018-08-31 10:55] LABS: ABSOLUTE EOSINOPHILS # (AUTO) 0.1 10^3/uL (0.0-0.6); ABSOLUTE LYMPHOCYTES (AUTO) 2.3 10^3/uL (0.5-4.7); ABSOLUTE MONOCYTES (AUTO) 0.9 10^3/uL (0.1-1.4); ABSOLUTE NEUT (AUTO) 7.4 10^3/uL (1.7-8.2); BASOPHILS % (AUTO) 0.3 % (0-2); EOSINOPHILS % (AUTO) 1.1 % (0-6); HEMATOCRIT 33.6 % (36.0-47.0); HEMOGLOBIN 11.4 g/dL (12.0-15.5); LYMPHOCYTES % (AUTO) 21.8 % (13-45); MEAN CORPUSCULAR HEMOGLOBIN 28.3 pg (27.0-33.4); MEAN CORPUSCULAR VOLUME 83 fl (80-97); MONOCYTES % (AUTO) 8.3 % (3-13); PLATELET COUNT 295 10^3/uL (150-450); RED BLOOD COUNT 4.03 10^6/uL (3.72-5.28); RED CELL DISTRIBUTION WIDTH 16.7 % (11.5-14.0); SEGMENTED NEUTROPHILS % (AUTO) 68.5 % (42-78); TOTAL CELLS COUNTED % (AUTO) 100 %; WHITE BLOOD COUNT 10.8 10^3/uL (4.0-10.5)
[2018-08-31] MEDS ORDERED: CEFTRIAXONE 1 GM/D5W RTU 1 GM/50 ML RTUPB IV ONE (11:06)
[2018-08-31] MEDS ORDERED: CLINDAMYCIN 600 MG/D5W RTU 600 MG/50 ML RTUPB IV ONE (11:06)
[2018-08-31 11:27] LABS: ANION GAP 6 (5-19); BLOOD UREA NITROGEN 9 mg/dL (7-20); CALCIUM 9.3 mg/dL (8.4-10.2); CARBON DIOXIDE 31 mmol/L (22-30); CHLORIDE 100 mmol/L (98-107); GLUCOSE 161 mg/dL (75-110); POTASSIUM 3.9 mmol/L (3.6-5.0); SODIUM 137.4 mmol/L (137-145)
--- NOTE | 2018-08-31 11:59 | PDOC H&P ---
History of Present Illness Admission Date/PCP: 08/31/18 11:18 t Patient complains of: abdominal pain History of Present Illness: LEONCIO MATTSON is a 43 year old female past medical history of diabetes who presents today with [id number] course of some pain and swelling to the right lower abdomen diagnosed "as an abscess" at the wound care center. Patient has had a history of multiple abscesses requiring incision and drainage. She has supposedly had 6 surgeries requiring operative limb intervention for abscess incision and drainage. Supposedly 4 of these were performed by Dr. Breann Ray. Patient has been treated for a left lower abdominal abscess being followed at the wound care center from around 3 to 4 weeks ago. She developed this new right lower quadrant lesion around 10 days ago. No fevers. Vomiting x2. Blood sugar especially around 180 over the last 24 hours. Patient was started on doxycycline after being evaluated to wound care center. Patient has an appointment upcoming with Dr. Breann Ray for possible further surgical intervention. She presents here for continued pain Past Medical History Cardiac Medical History: Reports: Hypertension Pulmonary Medical History: Reports: Asthma Endocrine Medical History: Reports: Diabetes Mellitus Type 2 Hematology: Reports: Anemia Past Surgical History Past Surgical History: Reports: Cholecystectomy, Other - multiple abscess drainages. Social History Smoking Status: Unknown if Ever Smoked Frequency of Alcohol Use: None Hx Recreational Drug Use: No Family History Family History: Reviewed & Not Pertinent Parental Family History Reviewed: Yes Children Family History Reviewed: NA Sibling(s) Family History Reviewed.: NA Medication/Allergy Home Medications: Sitagliptin Phosphate [Januvia 25 mg Tablet] 100 mg PO DAILY 12/09/16 Amlodipine Besylate 1 tab PO DAILY 07/27/17 Clindamycin HCl 300 mg PO Q6H #28 capsule 07/27/17 Gabapentin 1 cap PO BID 07/27/17 Tramadol HCl [Ultram 50 mg Tablet] 50 mg PO ASDIR PRN #14 tablet 11/07/17 Clindamycin HCl [Cleocin 150 mg Capsule] 300 mg PO TID #42 capsule 01/29/18 Amlodipine Besylate [Norvasc 10 mg Tablet] 10 mg PO DAILY #30 tablet 05/14/18 Hydrochlorothiazide [Hydrodiuril 25 mg Tablet] 25 mg PO QAM #30 tablet 05/14/18 Sitagliptin Phosphate [Januvia 50 mg Tablet] 50 mg PO DAILY #30 tablet 05/14/18 Clindamycin HCl [Cleocin 300 mg Capsule] 300 mg PO QID #40 capsule 05/28/18 Metformin HCl [Glucophage 500 mg Tablet] 500 mg PO BID #60 tablet 05/28/18 Allergies/Adverse Reactions: iodine [Iodine] Allergy (Verified 05/14/18 09:29) Penicillins Allergy (Verified 05/14/18 09:29) Sulfa (Sulfonamide Antibiotics) Allergy (Verified 05/14/18 09:29) Review of Systems Constitutional: PRESENT: fatigue, other Eyes: PRESENT: other - no vision changes Nose, Mouth, and Throat: PRESENT: other - no ;hearingc;hanges Breasts: PRESENT: other - no breast paiin or masses Cardiovascular: PRESENT: other - nochest pain or palpations Respiratory: PRESENT: other - no shortness of breath Gastrointestinal: PRESENT: other - other than abdominal pain, no c/o change in bowel habits Genitourinary: PRESENT: other - no dysuria Musculoskeletal: PRESENT: other - no joint pain or weakness Integumentary: PRESENT: other - per;hpi Neurological: PRESENT: other - no c/o focal defects Psychiatric: PRESENT: other Endocrine: PRESENT: other - no cold or heat intolerace Hematologic/Lymphatic: PRESENT: other - no easy bruisability Physical Exam Vital Signs: Temp Pulse Resp BP Pulse Ox 98.8 F 106 H 22 H 167/94 H 98 08/31/18 06:59 08/31/18 06:59 08/31/18 06:59 08/31/18 06:59 08/31/18 06:59 Intake & Output 08/30/18 08/31/18 09/01/18 06:59 06:59 06:59 Weight 121.109 kg General appearance: PRESENT: no acute distress Head exam: PRESENT: normocephalic Eye exam: PRESENT: EOMI Mouth exam: PRESENT: dry mucosa Neck exam: PRESENT: full ROM Respiratory exam: PRESENT: clear to auscultation debbie Cardiovascular exam: PRESENT: RRR Pulses: PRESENT: normal radial pulses, normal femoral pulses Vascular exam: PRESENT: normal capillary refill GI/Abdominal exam: PRESENT: soft, other - mulitiple skin abscess with necrosis 4cm abscess rlq and 2cm abscess llq and 2cm abscess in left groin Rectal exam: PRESENT: deferred Extremities exam: PRESENT: full ROM Musculoskeletal exam: PRESENT: full ROM Neurological exam: PRESENT: alert, awake, oriented to person, oriented to place, oriented to time, oriented to situation Psychiatric exam: PRESENT: appropriate affect Focused psych exam: PRESENT: other Skin exam: PRESENT: other - multiple abd wall skin abscess see abdomial exam Results Laboratory Results: 08/31/18 10:30 08/31/18 10:30 08/31/18 08/31/18 10:30 10:30 WBC 10.8 H RBC 4.03 Hgb 11.4 L Hct 33.6 L MCV 83 MCH 28.3 MCHC 34.0 RDW 16.7 H Plt Count 295 Seg Neutrophils % 68.5 Lymphocytes % 21.8 Monocytes % 8.3 Eosinophils % 1.1 Basophils % 0.3 Absolute Neutrophils 7.4 Absolute Lymphocytes 2.3 Absolute Monocytes 0.9 Absolute Eosinophils 0.1 Absolute Basophils 0.0 Sodium 137.4 Potassium 3.9 Chloride 100 Carbon Dioxide 31 H Anion Gap 6 BUN 9 Creatinine 0.59 Est GFR ( Amer) > 60 Est GFR (Non-Af Amer) > 60 Glucose 161 H Calcium 9.3 Assessment & Plan - Plan Summary Plan Summary: multiple abd wall skin abscess with necrosis plan on operative excision and debridement risks of recurrance, infection, bleeding have been discussed pt agrees to proceed.
[2018-08-31] MEDS ORDERED: BUPIVACAINE HCL 0.5%-EPI 1:200000 INJ/PF 30 ML VIAL ONE (12:20)
[2018-08-31] MEDS ORDERED: FENTANYL CITRATE INJ/PF 250 MCG/5 ML AMPULE ONE (12:52)
[2018-08-31] MEDS ORDERED: MIDAZOLAM 2 MG/2 ML INJ ONE (12:53)
[2018-08-31] MEDS ORDERED: PROPOFOL INJ 200 MG/20 ML VIAL IV ONE (12:53)
[2018-08-31] MEDS ORDERED: ONDANSETRON HCL INJ/PF 4 MG/2 ML SDV ONE (12:53)
[2018-08-31] MEDS ORDERED: MEPERIDINE HCL/PF INJ 25 MG/1 ML DISP.SYRIN IV PRN (13:18)
[2018-08-31] MEDS ORDERED: MORPHINE SULFATE 10 MG/ML INJ IV PRN ×3 (13:18→20:00)
[2018-08-31] MEDS ORDERED: PROMETHAZINE HCL INJ 25 MG/1 ML VIAL IV PRN (13:18)
[2018-08-31] MEDS ORDERED: FENTANYL CITRATE INJ/PF 100 MCG/2 ML AMPUL IV PRN ×3 (13:18)
[2018-08-31] MEDS ORDERED: DIPHENHYDRAMINE HCL 50 MG/ML VIAL IV PRN (13:18)
--- NOTE | 2018-08-31 13:52 | Operative Report ---
Nonrecallable Operative Report DATE OF SURGERY: 08/31/18 Operative Report: incision and drainage of abdomiinal wall abscess x3 and left thigh abscess PREOPERATIVE DIAGNOSIS: abdominal wall abscess and thigh abscess OPERATION: incision and drainage of abdominal wall abscess x3 and left thigh abscess SURGEON: TIERNEY SERRANO ANESTHESIA: GA TISSUE REMOVED OR ALTERED: abdominal wall and thigh abscess x4 COMPLICATIONS: none ESTIMATED BLOOD LOSS: 10cc INTRAOPERATIVE FINDINGS: see dictation
[2018-08-31] MEDS ORDERED: ONDANSETRON 4 MG TAB.RAPDIS PO PRN (13:53)
[2018-08-31] MEDS ORDERED: DEXTROSE 40% GEL 15 GM TUBE PO PRN ×4 (13:59→17:31)
[2018-08-31] MEDS ORDERED: DEXTROSE 50%-WATER 25 GM/50 ML DISP.SYRIN IV PRN ×4 (13:59→17:31)
[2018-08-31] MEDS ORDERED: GLUCAGON,HUMAN RECOMB 1 MG INJ IM PRN ×2 (13:59→17:31)
[2018-08-31] MEDS: FENTANYL CITRATE INJ/PF 100 MCG/2 ML AMPUL ONE ×2 (14:10→14:20)
[2018-08-31] MEDS ORDERED: VANCOMYCIN HCL 0 MG in DEXTROSE 5%-WATER 250 ML IV NR (14:15)
--- NOTE | 2018-08-31 15:00 | OPERATIVE REPORT E ---
Operative Report NAME: LEONCIO MATTSON : 1975 AGE: 43Y DATE OF SURGERY: 08/31/2018 ROOM: ED05 PREOPERATIVE DIAGNOSIS: Multiple abdominal wall and thigh abscesses. POSTOPERATIVE DIAGNOSIS: Multiple abdominal wall and thigh abscesses. OPERATIVE PROCEDURE: Incision, drainage, and debridement of abdominal wall abscess x3 and left thigh abscess. SURGEON: TIERNEY SERRANO M.D. ANESTHESIA: General. INDICATIONS FOR OPERATION: This is a 43-year-old female who presented to the emergency room with a draining abscess in her right abdominal wall. She had it for a number of months and was being [facility]. It appeared that it had necrotic skin with an area of surrounding cellulitis. It looked suspicious for a methicillin-resistant Staphylococcus aureus abscess. She was, therefore, brought to the operating room for this procedure. PROCEDURE: The patient was brought to the operating room in awake, alert, and stable condition, placed on the operating table in supine position, induced under general anesthesia, and intubated. The abdomen, groin, and thighs were prepped and draped in the usual sterile manner for the procedure. After appropriate time out and site verification, the large abscess in the right side of the abdominal wall was incised in an elliptical fashion. We carried our dissection down through subcutaneous tissue into the deep fatty tissue with the Bovie cautery. Once we were below the abscess and still in the subcutaneous fat, it was excised with the Bovie cautery. It drained a large amount of creamy cuello pus. However, we remained outside the abscess cavity using the cautery. Upon completion of the excision there was only normal fat remaining in the wound. Then, attention was turned to a second abscess just inferior to that on the anterior abdominal wall that was smaller. The first one was 8 cm in diameter and the second abscess was about 3 cm in diameter. Similarly, an elliptical incision was made around it, dissection carried down through subcutaneous tissue and fatty tissue with the Bovie cautery, and the abscess was excised from the surrounding tissue and removed. A third abscess was noted in the left groin crease. It was also elliptically incised with the Bovie cautery and dissection carried down through the subcutaneous tissue into the fatty tissue. It again was excised, leaving normal surrounding fatty tissue. It was approximately 3 cm in diameter. The last abscess was on the left anterior thigh. It was only 1.5 cm in diameter. It was incised elliptically with the Bovie cautery. Dissection was carried down through subcutaneous tissue with Bovie cautery, and it was removed from the surrounding fatty tissue. All 4 abscess sites were left open and then packed with a Betadine-soaked gauze and a sterile dressing was applied. Estimated blood loss for the entire procedure was less than 25 mL. Sponge and needle counts were correct x2. The patient was awakened in the operating room, extubated, and transferred to recovery in stable condition. DICTATING PHYSICIAN: TIERNEY SERRANO M.D. [id number] PHY#: [id number] ID: [id number] JOB#: [id number] ACCT: [id number] cc:TIERNEY SERRANO M.D. >
[2018-08-31] MEDS: HEPARIN SOD (PORCINE) 5,000 UNIT/ML 1 ML SYRINGE SUBCUT SCH ×2 (16:45→21:46)
[2018-08-31] MEDS: VANCOMYCIN HCL 1,500 MG in DEXTROSE 5%-WATER 250 ML IV SCH ×2 (16:53→21:42)
[2018-08-31] MEDS: DEXTROSE 5%-LACTATED RINGERS 1,000 ML IV PRN (16:53)
[2018-08-31] MEDS ORDERED: HYDRALAZINE HCL INJ/PF 20 MG/1 ML SDV IV PRN (17:36)
--- NOTE | 2018-08-31 17:36 | PDOC CONSULTATION ---
Consultation Consult Date: 08/31/18 History of Present Illness Admission Date/PCP: 08/31/18 13:54 History of Present Illness: LEONCIO MATTSON is a 43 year old female with a PMH of HTN, DM 2 and history of hidradenitits suppurativa with prior abdominal abscesses and surgeries who presented with increasing pain and drainage on her RLQ abdominal area. She was admitted for another abdominal abscess. She was brought in to the OR from the ED for drainage of abscess by surgery. Hospitalist service was consulted for co-management of her diabetes and HTN. Patient is post-op and is currently comfortable. Denies acute complaints at this time. Past Medical History Cardiac Medical History: Reports: Hypertension Pulmonary Medical History: Reports: Asthma Endocrine Medical History: Reports: Diabetes Mellitus Type 2 Hematology: Reports: Anemia Past Surgical History Past Surgical History: Reports: Cholecystectomy, Other - multiple abscess drainages. Social History Smoking Status: Unknown if Ever Smoked Frequency of Alcohol Use: None Hx Recreational Drug Use: No - Advance Directive Resuscitation Status: Full Code Family History Family History: Reviewed & Not Pertinent Parental Family History Reviewed: Yes - no premature CAD Children Family History Reviewed: No Sibling(s) Family History Reviewed.: No Medication/Allergy Home Medications: Amlodipine Besylate [Norvasc 10 mg Tablet] 10 mg PO DAILY 08/31/18 Glipizide [Glipizide Xl] 5 mg PO [id number] 08/31/18 Hydrochlorothiazide [Hydrodiuril 25 mg Tablet] 25 mg PO DAILY 08/31/18 Metoprolol Tartrate [Lopressor 25 mg Tablet] 25 mg PO Q12 08/31/18 Pioglitazone HCl [Actos] 30 mg PO DAILY 08/31/18 Allergies/Adverse Reactions: iodine [Iodine] Allergy (Verified 05/14/18 09:29) Penicillins Allergy (Verified 05/14/18 09:29) Sulfa (Sulfonamide Antibiotics) Allergy (Verified 05/14/18 09:29) Review of Systems All systems: reviewed and no additional remarkable complaints except as stated - as mentioned in HPI Physical Exam Vital Signs: Temp Pulse Resp BP Pulse Ox 98.6 F 84 16 166/97 H 100 08/31/18 10:00 08/31/18 10:00 08/31/18 10:00 08/31/18 10:00 08/31/18 10:00 Intake & Output 08/30/18 08/31/18 09/01/18 06:59 06:59 06:59 Intake Total 850 Output Total 160 Balance 690 Weight 267 lb General appearance: PRESENT: no acute distress, well-developed, well-nourished Head exam: PRESENT: atraumatic, normocephalic Eye exam: PRESENT: conjunctiva pink, EOMI, PERRLA. ABSENT: scleral icterus Ear exam: PRESENT: normal external ear exam Mouth exam: PRESENT: moist, tongue midline Neck exam: ABSENT: carotid bruit, JVD, lymphadenopathy, thyromegaly Respiratory exam: PRESENT: clear to auscultation debbie. ABSENT: rales, rhonchi, wheezes Cardiovascular exam: PRESENT: RRR. ABSENT: diastolic murmur, rubs, systolic murmur GI/Abdominal exam: PRESENT: normal bowel sounds, soft, tenderness - mildten on site of drainage. ABSENT: distended, guarding, mass, organolmegaly, rebound Rectal exam: PRESENT: deferred Neurological exam: PRESENT: alert, awake, oriented to person, oriented to place, oriented to time, oriented to situation, CN II-XII grossly intact. ABSENT: motor sensory deficit Results Laboratory Results: 08/31/18 10:30 08/31/18 10:30 08/31/18 08/31/18 10:30 10:30 WBC 10.8 H RBC 4.03 Hgb 11.4 L Hct 33.6 L MCV 83 MCH 28.3 MCHC 34.0 RDW 16.7 H Plt Count 295 Seg Neutrophils % 68.5 Lymphocytes % 21.8 Monocytes % 8.3 Eosinophils % 1.1 Basophils % 0.3 Absolute Neutrophils 7.4 Absolute Lymphocytes 2.3 Absolute Monocytes 0.9 Absolute Eosinophils 0.1 Absolute Basophils 0.0 Sodium 137.4 Potassium 3.9 Chloride 100 Carbon Dioxide 31 H Anion Gap 6 BUN 9 Creatinine 0.59 Est GFR ( Amer) > 60 Est GFR (Non-Af Amer) > 60 Glucose 161 H Calcium 9.3 Assessment and Plan - Diagnosis (1) Abdominal wall abscess Is this a current diagnosis for this admission?: Yes Plan: S/P drainage by surgery. (2) Diabetes mellitus Is this a current diagnosis for this admission?: Yes Plan: She is not able to recall her home meds. Will have pharmacy verify home meds. Accuchecks q6h and will cover with SSI for now. (3) Hypertension Is this a current diagnosis for this admission?: Yes Plan: Will resume home meds. Add hydralazine prn. - Time Time Spent with patient: 15-24 minutes
[2018-08-31] MEDS ORDERED: INSULIN REG, HUMAN 100 UNIT/ML 3 ML VIAL (PYX) SUBCUT SCH (18:00)
[2018-08-31] MEDS: INSULIN LISPRO 100 UNIT/ML 3 ML VIAL SUBCUT SCH ×2 (18:52→21:46)
[2018-08-31] MEDS: METOPROLOL TARTRATE 25 MG TABLET PO SCH (21:37)
[2018-08-31] MEDS: TRAMADOL HCL 50 MG TABLET PO PRN (21:38)
[2018-08-31] MEDS: FAMOTIDINE INJ/PF 20 MG/2 ML SDV IV SCH (21:44)
[2018-08-31] MEDS ORDERED: INSULIN LISPRO 100 UNIT/ML 3 ML VIAL SUBCUT SCH (22:00)
[2018-09-01] MEDS: TRAMADOL HCL 50 MG TABLET PO PRN ×2 (05:26→18:54)
[2018-09-01] MEDS: DEXTROSE 5%-LACTATED RINGERS 1,000 ML IV PRN ×2 (05:27→22:20)
[2018-09-01] MEDS: HEPARIN SOD (PORCINE) 5,000 UNIT/ML 1 ML SYRINGE SUBCUT SCH ×3 (05:31→22:24)
[2018-09-01] MEDS: VANCOMYCIN HCL 1,500 MG in DEXTROSE 5%-WATER 250 ML IV SCH ×3 (05:31→22:16)
[2018-09-01 07:24] LABS: ABSOLUTE EOSINOPHILS # (AUTO) 0.1 10^3/uL (0.0-0.6); ABSOLUTE LYMPHOCYTES (AUTO) 1.7 10^3/uL (0.5-4.7); ABSOLUTE MONOCYTES (AUTO) 0.8 10^3/uL (0.1-1.4); ABSOLUTE NEUT (AUTO) 6.9 10^3/uL (1.7-8.2); BASOPHILS % (AUTO) 0.4 % (0-2); EOSINOPHILS % (AUTO) 1.2 % (0-6); HEMATOCRIT 30.5 % (36.0-47.0); HEMOGLOBIN 10.4 g/dL (12.0-15.5); LYMPHOCYTES % (AUTO) 17.8 % (13-45); MEAN CORPUSCULAR HEMOGLOBIN 28.1 pg (27.0-33.4); MEAN CORPUSCULAR HGB CONC 34.2 g/dL (32.0-36.0); MEAN CORPUSCULAR VOLUME 82 fl (80-97); MONOCYTES % (AUTO) 8.2 % (3-13); PLATELET COUNT 262 10^3/uL (150-450); RED BLOOD COUNT 3.71 10^6/uL (3.72-5.28); RED CELL DISTRIBUTION WIDTH 16.8 % (11.5-14.0); SEGMENTED NEUTROPHILS % (AUTO) 72.4 % (42-78); TOTAL CELLS COUNTED % (AUTO) 100 %; WHITE BLOOD COUNT 9.5 10^3/uL (4.0-10.5)
[2018-09-01 07:57] LABS: ALANINE AMINOTRANSFERASE 10 U/L (9-52); ALBUMIN 3.2 g/dL (3.5-5.0); ALKALINE PHOSPHATASE 59 U/L (38-126); ANION GAP 8 (5-19); ASPARTATE AMINO TRANSFERASE 8 U/L (14-36); BILIRUBIN,DIRECT 0.2 mg/dL (0.0-0.4); BILIRUBIN,TOTAL 0.6 mg/dL (0.2-1.3); BLOOD UREA NITROGEN 8 mg/dL (7-20); CALCIUM 8.6 mg/dL (8.4-10.2); CARBON DIOXIDE 27 mmol/L (22-30); CHLORIDE 101 mmol/L (98-107); GLUCOSE 198 mg/dL (75-110); POTASSIUM 3.8 mmol/L (3.6-5.0); SODIUM 135.5 mmol/L (137-145); TOTAL PROTEIN 6.2 g/dL (6.3-8.2)
[2018-09-01] MEDS: INSULIN LISPRO 100 UNIT/ML 3 ML VIAL SUBCUT SCH ×4 (08:25→22:26)
--- NOTE | 2018-09-01 09:31 | PDOC PROGRESS REPORT ---
Subjective Progress Note for:: 09/01/18 Subjective:: Feels okay. Reason For Visit: ABDOMINAL WALL ABSCESS Physical Exam Vital Signs: Temp Pulse Resp BP Pulse Ox 98.5 F 84 16 151/79 H 100 09/01/18 07:56 09/01/18 07:56 09/01/18 07:56 09/01/18 07:56 09/01/18 07:56 Intake & Output 08/31/18 09/01/18 09/02/18 06:59 06:59 06:59 Intake Total 4490 250 Output Total 160 Balance 4330 250 Weight 121.109 kg 122.4 kg General appearance: PRESENT: no acute distress Respiratory exam: PRESENT: clear to auscultation debbie Cardiovascular exam: PRESENT: RRR Skin exam: PRESENT: other - Multiple abdominal groin and leg wounds all examined. They all appear very clean with mild erythema in the surrounding skin. All packings were removed and repacked. Results Laboratory Results: 09/01/18 06:31 09/01/18 06:31 08/31/18 08/31/18 09/01/18 10:30 10:30 06:31 WBC 10.8 H 9.5 RBC 4.03 3.71 L Hgb 11.4 L 10.4 L Hct 33.6 L 30.5 L MCV 83 82 MCH 28.3 28.1 MCHC 34.0 34.2 RDW 16.7 H 16.8 H Plt Count 295 262 Seg Neutrophils % 68.5 72.4 Lymphocytes % 21.8 17.8 Monocytes % 8.3 8.2 Eosinophils % 1.1 1.2 Basophils % 0.3 0.4 Absolute Neutrophils 7.4 6.9 Absolute Lymphocytes 2.3 1.7 Absolute Monocytes 0.9 0.8 Absolute Eosinophils 0.1 0.1 Absolute Basophils 0.0 0.0 Sodium 137.4 Potassium 3.9 Chloride 100 Carbon Dioxide 31 H Anion Gap 6 BUN 9 Creatinine 0.59 Est GFR ( Amer) > 60 Est GFR (Non-Af Amer) > 60 Glucose 161 H Calcium 9.3 Total Bilirubin AST ALT Alkaline Phosphatase Total Protein Albumin 09/01/18 06:31 WBC RBC Hgb Hct MCV MCH MCHC RDW Plt Count Seg Neutrophils % Lymphocytes % Monocytes % Eosinophils % Basophils % Absolute Neutrophils Absolute Lymphocytes Absolute Monocytes Absolute Eosinophils Absolute Basophils Sodium 135.5 L Potassium 3.8 Chloride 101 Carbon Dioxide 27 Anion Gap 8 BUN 8 Creatinine 0.51 L Est GFR ( Amer) > 60 Est GFR (Non-Af Amer) > 60 Glucose 198 H Calcium 8.6 Total Bilirubin 0.6 AST 8 L ALT 10 Alkaline Phosphatase 59 Total Protein 6.2 L Albumin 3.2 L Assessment & Plan - Diagnosis (1) Abdominal wall abscess Is this a current diagnosis for this admission?: Yes Plan: Multiple skin abscesses status post excisional debridement. Patient looks good. Continue antibiotics until cultures return. Will need to have patient undergo dressing changes at home. She apparently has some help at home who are in the medical field. We will have family member come into the hospital and will see if they can do the dressing changes at home. If not will need to arrange home health.
[2018-09-01] MEDS: AMLODIPINE BESYLATE 10 MG TABLET PO SCH (10:57)
[2018-09-01] MEDS: HYDROCHLOROTHIAZIDE 25 MG TABLET PO SCH (10:57)
[2018-09-01] MEDS: METOPROLOL TARTRATE 25 MG TABLET PO SCH ×2 (10:57→22:21)
[2018-09-01] MEDS: DOCUSATE SODIUM 100 MG/10 ML UDC PO SCH (10:58)
[2018-09-01] MEDS: FAMOTIDINE INJ/PF 20 MG/2 ML SDV IV SCH ×2 (10:58→22:19)
--- NOTE | 2018-09-01 17:48 | PDOC PROGRESS REPORT ---
Subjective Progress Note for:: 09/01/18 Subjective:: LEONCIO MATTSON is a 43 year old female with a PMH of HTN, DM 2 and history of hidradenitits suppurativa with prior abdominal abscesses who was admitted to the surgical service for I&D to abdominal abscesses. Hospitalist service was consulted for management of diabetes and hypertension. Patient was seen on afternoon rounds. She was found resting in bed comfortably on room air. She has multiple family members present and was noted to be talking on the phone when I enter the room. Patient made eye contact with me but continued to speak on the phone even as I introduced myself. One of her family members told me that she was "busy on the phone right now." She was later seen ambulating in the hallway independently. She appeared to be comfortable and not in any acute distress. Exam limited secondary to patient participation. No concerns per nursing. Reason For Visit: ABDOMINAL WALL ABSCESS Physical Exam Vital Signs: Temp Pulse Resp BP Pulse Ox 98.5 F 86 18 154/91 H 100 09/01/18 15:01 09/01/18 15:01 09/01/18 15:01 09/01/18 15:01 09/01/18 15:01 Intake & Output 08/31/18 09/01/18 09/02/18 06:59 06:59 06:59 Intake Total 4490 250 Output Total 160 Balance 4330 250 Weight 121.109 kg 122.4 kg General appearance: PRESENT: no acute distress, well-developed, well-nourished Head exam: PRESENT: atraumatic, normocephalic Eye exam: PRESENT: conjunctiva pink, EOMI, PERRLA. ABSENT: scleral icterus Ear exam: PRESENT: normal external ear exam Mouth exam: PRESENT: moist, tongue midline Neck exam: PRESENT: full ROM Respiratory exam: PRESENT: symmetrical, unlabored Rectal exam: PRESENT: deferred Extremities exam: PRESENT: full ROM Musculoskeletal exam: PRESENT: ambulatory Neurological exam: PRESENT: alert, awake, CN II-XII grossly intact Psychiatric exam: PRESENT: appropriate affect, normal mood. ABSENT: homicidal ideation, suicidal ideation Skin exam: PRESENT: dry, warm. ABSENT: cyanosis Results Laboratory Results: 09/01/18 06:31 09/01/18 06:31 09/01/18 09/01/18 06:31 06:31 WBC 9.5 RBC 3.71 L Hgb 10.4 L Hct 30.5 L MCV 82 MCH 28.1 MCHC 34.2 RDW 16.8 H Plt Count 262 Seg Neutrophils % 72.4 Lymphocytes % 17.8 Monocytes % 8.2 Eosinophils % 1.2 Basophils % 0.4 Absolute Neutrophils 6.9 Absolute Lymphocytes 1.7 Absolute Monocytes 0.8 Absolute Eosinophils 0.1 Absolute Basophils 0.0 Sodium 135.5 L Potassium 3.8 Chloride 101 Carbon Dioxide 27 Anion Gap 8 BUN 8 Creatinine 0.51 L Est GFR ( Amer) > 60 Est GFR (Non-Af Amer) > 60 Glucose 198 H Calcium 8.6 Total Bilirubin 0.6 AST 8 L ALT 10 Alkaline Phosphatase 59 Total Protein 6.2 L Albumin 3.2 L Assessment and Plan - Diagnosis (1) Abdominal wall abscess Is this a current diagnosis for this admission?: Yes Plan: S/P drainage by surgery. Wound culture showed gram positive cocci. Blood cultures not obtained. Next Primary management per attending, surgery. Currently on IV vancomycin. Analgesics per surgical team. (2) Diabetes mellitus Qualifiers: Diabetes mellitus type: type 2 Is this a current diagnosis for this admission?: Yes Plan: She is placed on consistent carb diet. Accu-Cheks before meals and at bedtime with sliding scale coverage. Have resumed her home dose Glipizide and Actos. Registered dietitian clinical educator consulted. (3) Hypertension Is this a current diagnosis for this admission?: Yes Plan: Blood pressures are slightly elevated today; 154/91. Continue home dose amlodipine, metoprolol, hydrochlorothiazide. IV hydralazine as needed for blood pressure control. - Time Time Spent with patient: Less than 15 minutes Medications reviewed and adjusted accordingly: Yes
[2018-09-02] MEDS: VANCOMYCIN HCL 1,500 MG in DEXTROSE 5%-WATER 250 ML IV SCH (06:01)
[2018-09-02] MEDS: HEPARIN SOD (PORCINE) 5,000 UNIT/ML 1 ML SYRINGE SUBCUT SCH (06:03)
[2018-09-02] MEDS ORDERED: GLIPIZIDE XL 5 MG TAB.ER.24 PO SCH (08:00)
[2018-09-02] MEDS: TRAMADOL HCL 50 MG TABLET PO PRN (08:16)
[2018-09-02] MEDS: INSULIN LISPRO 100 UNIT/ML 3 ML VIAL SUBCUT SCH ×2 (09:09→12:24)
[2018-09-02] MEDS: HYDROCHLOROTHIAZIDE 25 MG TABLET PO SCH (09:10)
[2018-09-02] MEDS: AMLODIPINE BESYLATE 10 MG TABLET PO SCH (09:10)
[2018-09-02] MEDS: FAMOTIDINE INJ/PF 20 MG/2 ML SDV IV SCH (09:10)
[2018-09-02] MEDS ORDERED: PIOGLITAZONE HCL 30 MG TABLET PO SCH (10:00)
[2018-09-02] MEDS: DOCUSATE SODIUM 100 MG/10 ML UDC PO SCH (11:30)
[2018-09-02] MEDS: METOPROLOL TARTRATE 25 MG TABLET PO SCH (11:30)
[2018-09-02 12:09] VITALS: BP 150/91
--- NOTE | 2018-09-17 17:59 | DISCHARGE SUMMARY E ---
Discharge Summary NAME: LEONCIO MATTSON : 1975 AGE: 43Y ADMITTED: 08/31/2018 DISCHARGED: 09/02/2018 PROCEDURE DONE: 08/31/2018, incision and drainage of abdominal wall abscesses x3 and left thigh abscess. SURGEON: Dr. Galan [facility] COURSE: This is a 43-year-old female who was noted to be developing abscess on the abdomen about 10 days ago. She is being followed at the wound care center for wounds on the left side of the abdomen. She was noted to have right abdominal wall abscesses and left thigh abscess on admission, and subsequently taken to the OR by Dr. Galan for incision and drainage of abscesses x3 in the right abdominal wall and the left thigh. Postoperatively, the patient did very well, placed on IV antibiotics. The patient has diabetes and hypertension, and consultation by the hospitalist service was obtained. The patient did improve and was discharged on 09/02/2018. FINAL DIAGNOSES: 1. DIABETES MELLITUS. 2. HYPERTENSION. 3. MULTIPLE ABSCESSES RIGHT ABDOMINAL WALL X3 AND ABSCESS LEFT THIGH. She will be followed by home care nurse and also with the wound care center. DICTATING PHYSICIAN: ODILIA SALDAÑA M.D. [id number] PHY#: [id number] ID: [id number] JOB#: [id number] ACCT: [id number] cc:Khoi PERALES M.D. >
== END 2018-09-02 14:00 | disposition home or self-care (01) | DRG 571 ==
LOC: ER 06:58 → EH 11:18 → OBSVTOIN 13:54 → 2N 15:28
PROVIDERS: ADMIT Surgery; ATTEND Surgery
PROC: 0HBLXZZ Excision of Left Lower Leg Skin, External Approach (ICD-10-PCS; 2018-08-31)
PROC: 0JB80ZZ Excision of Abdomen Subcutaneous Tissue and Fascia, Open Approach (ICD-10-PCS; principal; 2018-08-31 12:45)
DX: L02.211 Cutaneous abscess of abdominal wall (principal); L02.416 Cutaneous abscess of left lower limb; L02.214 Cutaneous abscess of groin; L73.2 Hidradenitis suppurativa; E11.9 Type 2 diabetes mellitus without complications; I10 Essential (primary) hypertension; B96.89 Other specified bacterial agents as the cause of diseases classified elsewhere; J45.909 Unspecified asthma, uncomplicated; Z90.49 Acquired absence of other specified parts of digestive tract; D64.9 Anemia, unspecified; Z79.84 Long term (current) use of oral hypoglycemic drugs; Z88.0 Allergy status to penicillin; Z88.2 Allergy status to sulfonamides
CPT/HCPCS: 36415; 800; 80048; 80053; 80202; 82962; 85025; 87070; 87075; 87077; 87186; 87205; 88305; 96365; 96375; 99284; J0330; J0696; J1644; J1815; J2250; J2270; J2405; J2704; J3010; J3370; J3490; J7060; J7121; S0028

== ENCOUNTER 2018-12-28 18:12 | Emergency (ER) | payer OTHER ==
--- NOTE | 2018-12-28 18:47 | ER Document Report ---
ED Medical Screen (RME) - General Chief Complaint: Nausea/Vomiting Stated Complaint: VOMITING Time Seen by Provider: 12/28/18 18:38 Primary Care Provider: AUGIE EVANS PA-C [Primary Care Provider] - Follow up as needed TRAVEL OUTSIDE OF THE [place] IN LAST 30 DAYS: No - HPI Notes: 12/28/18 18:45 Patient is a 43-year-old female meeting SIRS criteria who presents complaining of fever, generalized abdominal pain, nausea, vomiting, urinary frequency, mild flank pain bilaterally over the past 2 days. Denies HOOVER, neck pain, URI, CP, SOB, back pain, or rash. I have treated and performed a rapid initial assessment of this patient. A comprehensive ED assessment and evaluation of the patient, analysis of test results and completion of medical decision making process will be conducted by additional ED providers. PHYSICAL EXAMINATION: GENERAL: Well-appearing, well-nourished and in no acute distress. A&Ox4. Answers questions appropriately. LUNGS: Breath sounds clear to auscultation bilaterally and equal. No wheezes rales or rhonchi. HEART: Regular rate and rhythm without murmurs, rubs, gallops. ABDOMEN: Soft, nondistended abdomen. No guarding, no rebound. Normal bowel sounds present. + mild CVA tenderness bilaterally. mild generalized tenderness (cannot elicit thorough abd exam w/o bed, however). Extremities: No cyanosis, clubbing, or edema b/l. NEUROLOGICAL: Normal speech, normal gait. PSYCH: Normal mood, normal affect. - Related Data Allergies/Adverse Reactions: iodine [Iodine] Allergy (Verified 12/28/18 18:13) lisinopril Allergy (Verified 12/28/18 18:33) Penicillins Allergy (Verified 12/28/18 18:13) Sulfa (Sulfonamide Antibiotics) Allergy (Verified 12/28/18 18:13) Past Medical History - Social History Frequency of alcohol use: Social Drug Abuse: None Family history: None - Past Medical History Cardiac Medical History: Reports: Hx Hypertension Pulmonary Medical History: Reports: Hx Asthma Endocrine Medical History: Reports: Hx Diabetes Mellitus Type 2 Renal/ Medical History: Denies: Hx Peritoneal Dialysis Past Surgical History: Reports: Hx Breast Surgery - cyst removals, Hx Cholecystectomy, Other - multiple abscess drainages. - Immunizations Hx Diphtheria, Pertussis, Tetanus Vaccination: - unknown Physical Exam - Vital signs Vitals: Temp Pulse Resp BP Pulse Ox 102.9 F H 125 H 24 H 177/95 H 98 12/28/18 18:16 12/28/18 18:16 12/28/18 18:16 12/28/18 18:16 12/28/18 18:16 Course - Vital Signs Vital signs: Temp Pulse Resp BP Pulse Ox 102.9 F H 125 H 24 H 177/95 H 98 12/28/18 18:16 12/28/18 18:16 12/28/18 18:16 12/28/18 18:16 12/28/18 18:16 Doctor's Discharge - Discharge Referrals: AUGIE EVANS PA-C [Primary Care Provider] - Follow up as needed
[2018-12-28] MEDS ORDERED: CEFTRIAXONE 1 GM/D5W RTU 1 GM/50 ML RTUPB IV SCH (19:00)
[2018-12-28] MEDS: NORMAL SALINE 1000 ML 1,000 ML IV PRN ×2 (19:05→19:07)
[2018-12-28 19:37] LABS: ABSOLUTE LYMPHOCYTES (AUTO) 0.6 10^3/uL (0.5-4.7); ABSOLUTE MONOCYTES (AUTO) 0.6 10^3/uL (0.1-1.4); ABSOLUTE NEUT (AUTO) 7.9 10^3/uL (1.7-8.2); BASOPHILS % (AUTO) 0.2 % (0-2); EOSINOPHILS % (AUTO) 0.2 % (0-6); HEMOGLOBIN 11.3 g/dL (12.0-15.5); LYMPHOCYTES % (AUTO) 6.8 % (13-45); MEAN CORPUSCULAR HEMOGLOBIN 28.2 pg (27.0-33.4); MEAN CORPUSCULAR HGB CONC 34.4 g/dL (32.0-36.0); MEAN CORPUSCULAR VOLUME 82 fl (80-97); MONOCYTES % (AUTO) 6.7 % (3-13); PLATELET COUNT 199 10^3/uL (150-450); RED BLOOD COUNT 4.02 10^6/uL (3.72-5.28); RED CELL DISTRIBUTION WIDTH 16.7 % (11.5-14.0); SEGMENTED NEUTROPHILS % (AUTO) 86.1 % (42-78); TOTAL CELLS COUNTED % (AUTO) 100 %; WHITE BLOOD COUNT 9.2 10^3/uL (4.0-10.5)
--- NOTE | 2018-12-28 19:41 | RADIOLOGY REPORT (SQ) ---
EXAM DESCRIPTION: CHEST SINGLE VIEW COMPLETED DATE/TIME: 12/28/2018 7:26 pm REASON FOR STUDY: fever COMPARISON: Chest radiographs 01/23/2009 EXAM PARAMETERS: NUMBER OF VIEWS: One view. TECHNIQUE: Single frontal radiographic view of the chest acquired. RADIATION DOSE: NA LIMITATIONS: None. FINDINGS: LUNGS AND PLEURA: No opacities, masses or pneumothorax. No pleural effusion. MEDIASTINUM AND HILAR STRUCTURES: No masses. Contour normal. HEART AND VASCULAR STRUCTURES: Heart normal in size. Normal vasculature. BONES: No acute findings. HARDWARE: None in the chest. OTHER: No other significant finding. IMPRESSION: No acute pulmonary findings. TECHNICAL DOCUMENTATION: JOB ID: [id number]- All Rights Reserved Reading location - IP/workstation name: [email or web address]
[2018-12-28 19:50] LABS: ALBUMIN 3.9 g/dL (3.5-5.0); ALKALINE PHOSPHATASE 78 U/L (38-126); ANION GAP 9 (5-19); ASPARTATE AMINO TRANSFERASE 17 U/L (14-36); BILIRUBIN,DIRECT 0.6 mg/dL (0.0-0.4); BILIRUBIN,TOTAL 1.9 mg/dL (0.2-1.3); BLOOD UREA NITROGEN 8 mg/dL (7-20); CALCIUM 9.1 mg/dL (8.4-10.2); CARBON DIOXIDE 27 mmol/L (22-30); CHLORIDE 101 mmol/L (98-107); GLUCOSE 176 mg/dL (75-110); POTASSIUM 3.7 mmol/L (3.6-5.0); TOTAL PROTEIN 7.1 g/dL (6.3-8.2)
[2018-12-28 20:45] LABS: APPEARANCE,URINE TURBID; BILIRUBIN,URINE NEGATIVE (NEGATIVE); COLOR,URINE AMBER; GLUCOSE, URINE NEGATIVE (NEGATIVE); KETONES,URINE TRACE mg/dL (NEGATIVE); LEUKOCYTE ESTERASE,URINE LARGE (NEGATIVE); NITRITE,URINE NEGATIVE (NEGATIVE); PROTEIN,URINE 100 mg/dL (NEGATIVE); URINE SPECIFIC GRAVITY 1.036
[2018-12-28] MEDS ORDERED: MORPHINE SULFATE 10 MG/ML INJ IV ONE ×2 (20:50→22:00)
--- NOTE | 2018-12-28 20:50 | RADIOLOGY REPORT (SQ) ---
EXAM DESCRIPTION: CT abdomen and pelvis with IV contrast. CLINICAL HISTORY: 43 years Female fever, abd pain COMPARISON: None TECHNIQUE: Axial images with IV contrast. 100 mL Omnipaque 350. Sagittal and coronal reconstruction. This exam was performed according to our departmental dose-optimization program, which includes automated exposure control, adjustment of the mA and/or kV according to patient size and/or use of iterative reconstruction technique. FINDINGS: Lung bases, liver, spleen, pancreas, right adrenal gland, aorta and para-aortic regions are unremarkable. Exophytic left lateral adrenal lesion. Measures 25 spleen by 20 mm. Density off lesion is 70 Hounsfield units. Previous cholecystectomy. No evidence for biliary dilatation. Bowel loops and peritoneal cavity are unremarkable. Right kidney is unremarkable. Left kidney demonstrates a nonobstructive 3 mm stone in the lower pole. There is no obvious left hydronephrosis. Minimal left perirenal stranding. There is mild wall thickening of the left ureter. CT of the pelvis demonstrates anteflexed uterus. Adnexa are unremarkable. Tiny free fluid can be normal. Diffuse urinary bladder wall thickening up to 6.5 mm. No adenopathy. Distal colon is unremarkable. IMPRESSION: 1. Nonobstructing left kidney stone. No evidence for left hydronephrosis. 2. There is minimal dilatation of the left ureter which demonstrates minimal diffuse wall thickening. There is no obvious distal ureteric obstructing stone. There is presence of mild diffuse urinary bladder wall thickening suggestive of UTI. The thickening of the wall of the left ureter is possibly due to the UTI also.. 3. There is a left adrenal lesion mostly exophytic. Statistically more likely an adenoma. However not optimally evaluated without noncontrast CT of the abdomen.
[2018-12-28] MEDS ORDERED: KETOROLAC TROMETHAMINE INJ/PF 30 MG/1 ML SDV IV ONE ×2 (20:51→21:30)
[2018-12-28] MEDS ORDERED: ONDANSETRON HCL INJ/PF 4 MG/2 ML SDV IV ONE ×3 (20:51→22:57)
[2018-12-28] MEDS ORDERED: NORMAL SALINE 1000 ML 1,000 ML IV ONE (21:21)
[2018-12-28] MEDS ORDERED: NORMAL SALINE 1000 ML 1,000 ML IV PRN (21:22)
[2018-12-28] MEDS ORDERED: ONDANSETRON ODT 4 MG TAB (6 TAB/ER DISP) PO PRN (21:32)
[2018-12-28] MEDS ORDERED: HYDROCODONE/ACETAMINOPHEN 5-325 MG (6 TAB/ER DISP) PO PRN (21:40)
--- NOTE | 2018-12-28 21:43 | ER Document Report ---
ED General - General Chief Complaint: Nausea/Vomiting Stated Complaint: VOMITING Time Seen by Provider: 12/28/18 18:38 Primary Care Provider: AUGIE EVANS PA-C [Primary Care Provider] - Follow up as needed TRAVEL OUTSIDE OF THE [place] IN LAST 30 DAYS: No - HPI Notes: Patient is a 43-year-old female who presents to the emergency department for evaluation. She states that for the last 3 days she is had nausea and vomiting. She states she said urinary frequency, feeling as if she has to urinate every hour. She developed a fever today so she came into be evaluated. She denies any diarrhea, normal bowel movements. She has no coughing. No gross hematuria. She states she hurts on the sides of her abdomen, but more anteriorly. She denies any real back or flank pain. Her sugars have been running in the 150 range. - Related Data Allergies/Adverse Reactions: iodine [Iodine] Allergy (Verified 12/28/18 18:13) lisinopril Allergy (Verified 12/28/18 18:33) Penicillins Allergy (Verified 12/28/18 18:13) Sulfa (Sulfonamide Antibiotics) Allergy (Verified 12/28/18 18:13) Past Medical History - General Information source: Patient - Social History Smoking Status: Current Every Day Smoker Frequency of alcohol use: Social Drug Abuse: None Family History: Reviewed & Not Pertinent Patient has suicidal ideation: No Patient has homicidal ideation: No - Past Medical History Cardiac Medical History: Reports: Hx Hypertension Pulmonary Medical History: Reports: Hx Asthma Endocrine Medical History: Reports: Hx Diabetes Mellitus Type 2 Renal/ Medical History: Denies: Hx Peritoneal Dialysis Past Surgical History: Reports: Hx Breast Surgery - cyst removals, Hx Cholecystectomy, Other - multiple abscess drainages. - Immunizations Hx Diphtheria, Pertussis, Tetanus Vaccination: - unknown Review of Systems - Review of Systems Constitutional: See HPI EENT: No symptoms reported Cardiovascular: No symptoms reported Respiratory: No symptoms reported Gastrointestinal: See HPI Genitourinary: See HPI Female Genitourinary: No symptoms reported Musculoskeletal: No symptoms reported Skin: No symptoms reported Neurological/Psychological: No symptoms reported Physical Exam - Vital signs Vitals: Temp Pulse Resp BP Pulse Ox 102.9 F H 125 H 24 H 177/95 H 98 12/28/18 18:16 12/28/18 18:16 12/28/18 18:16 12/28/18 18:16 12/28/18 18:16 - Notes Notes: Vital signs reviewed, please refer to chart. Head is normocephalic, atraumatic. Pupils equal round, reactive to light. Neck is supple without meningismus. Heart is regular rate and rhythm. Lungs are clear to auscultation bilaterally. Abdomen is soft, globally tender without rebound or guarding, normoactive bowel sounds throughout. No costovertebral angle tenderness. Extremities without cyanosis, clubbing. Posterior calves are nontender. Peripheral pulses are equal. Skin is warm and dry. Patient is awake, alert, neurological exam is no nfocal. Course - Re-evaluation Re-evalutation: 12/28/18 21:38 Patient presents emergency department for evaluation. On arrival she is febrile. She did not take anything for fever prior to arrival. She is given IV fluids. Her findings are most consistent with urinary tract infection. Laboratory investigations failed to reveal any significant abnormalities in renal function. She did have some very mild hyponatremia. She has no leukocytosis nor does she have a bandemia. Patient is given IV Rocephin. Her urine is sent for culture, blood cultures were obtained as well. CT scan shows some ureteral changes, but does not show signs of pyelonephritis. I discussed options with patient. She states she would like to try to go home. She is given her first dose of IV Rocephin here. I will send her home with a week of Pito. She is to follow-up with her primary care doctor in 48 hours. She is notified if she continues vomiting, her fevers continue for longer than 24 hours, or if she develops any new or concerning symptoms of any sort, she needs to return immediately to the emergency department for reevaluation. - Vital Signs Vital signs: Temp Pulse Resp BP Pulse Ox 100.3 F 125 H 16 161/95 H 100 12/28/18 19:43 12/28/18 18:16 12/28/18 19:43 12/28/18 19:43 12/28/18 19:43 - Laboratory Result Diagrams: 12/28/18 19:02 12/28/18 19:02 Laboratory results interpreted by me: 12/28/18 12/28/18 12/28/18 19:02 19:02 20:23 Hgb 11.3 L Hct 33.0 L RDW 16.7 H Lymph % (Auto) 6.8 L Seg Neutrophils % 86.1 H Sodium 136.9 L Glucose 176 H Total Bilirubin 1.9 H Direct Bilirubin 0.6 H Urine Protein 100 H Urine Ketones TRACE H Urine Blood LARGE H Urine Urobilinogen 2.0 H Ur Leukocyte Esterase LARGE H - Diagnostic Test Radiology results interpreted by me: 12/28/18 21:39 Chest X-Ray 12/28/18 18:43 IMPRESSION: No acute pulmonary findings. Abdomen/Pelvis CT 12/28/18 18:47 IMPRESSION: 1. Nonobstructing left kidney stone. No evidence for left hydronephrosis. 2. There is minimal dilatation of the left ureter which demonstrates minimal diffuse wall thickening. There is no obvious distal ureteric obstructing stone. There is presence of mild diffuse urinary bladder wall thickening suggestive of UTI. The thickening of the wall of the left ureter is possibly due to the UTI also.. 3. There is a left adrenal lesion mostly exophytic. Statistically more likely an adenoma. However not optimally evaluated without noncontrast CT of the abdomen. Discharge - Discharge Clinical Impression: Urinary tract infection Qualifiers: Urinary tract infection type: site unspecified Hematuria presence: without hematuria Qualified Code(s): N39.0 - Urinary tract infection, site not specified Nausea and vomiting Qualifiers: Vomiting type: unspecified Vomiting Intractability: non-intractable Qualified Code(s): R11.2 - Nausea with vomiting, unspecified Fever Qualifiers: Encounter type: initial encounter Condition: Stable Disposition: HOME, SELF-CARE Instructions: Urinary Tract Infection ([facility]), Antinausea Medication ([facility]), Vomiting ([facility]) Additional Instructions: Rest and stay well-hydrated. Start Cipro immediately tomorrow morning. Follow- up with your primary care provider in 24 to 48 hours at the most. If you continue with fevers longer than 24 hours from now, vomiting or you can keep down your antibiotics, or any other new or concerning symptoms, return immediately to the emergency department for reevaluation. Referrals: AUGIE EVANS PA-C [Primary Care Provider] - Follow up as needed
[2018-12-28] MEDS ORDERED: ACETAMINOPHEN 325 MG TABLET PO ONE (22:35)
--- NOTE | 2018-12-29 00:46 | ER Document Report ---
Doctor's Note Notes: 12/29/18 00:45 Patient reevaluated and states that she is feeling much better. Repeat temperature is 100.9 heart rate currently 106. Patient does have a prescription for ciprofloxacin and I will give her an additional prescription for Zofran. Patient was evaluated and treated as appropriate for the patient's presenting symptoms and complaint, with consideration of any critical or life threatening conditions that may be associated with their obtained history and exam as noted above. All results were discussed with patient and her significant other who is at the bedside patient provided the opportunity to ask questions, and express concerns. Patient was educated on treatments based on their presumed diagnosis as noted above. At this time we will discharge the patient with return precautions and follow-up recommendations. Verbal discharge instructions given a the bedside. Medication warnings reviewed. Patient is in agreement with this plan and has verbalized understanding of return precautions. After careful consideration I feel that that patient can be safely discharged from the emergency department, they were advised to followup with a primary care physician in 2-3 days. Dictation on this chart was performed using voice recognition software and may result in unintended grammatical, spelling, syntax or errors. PHYSICAL EXAMINATION: GENERAL: Well-appearing, well-nourished and in no acute distress. HEAD: Atraumatic, normocephalic. EYES: Pupils equal round extraocular movements intact, conjunctiva are normal. ENT: Nares patent NECK: Normal range of motion LUNGS: No respiratory distress Musculoskeletal: Normal range of motion NEUROLOGICAL: Normal speech, normal gait. PSYCH: Normal mood, normal affect. SKIN: Warm, Dry, normal turgor, no rashes or lesions noted.
[2018-12-29] MEDS ORDERED: ONDANSETRON ODT 4 MG TAB (6 TAB/ER DISP) PO PRN (00:47)
[2018-12-29 00:53] VITALS: BP 136/105
== END 2018-12-29 01:08 | disposition home or self-care (01) ==
LOC: ER 18:12
DX: N39.0 Urinary tract infection, site not specified (principal); R11.2 Nausea with vomiting, unspecified; N20.0 Calculus of kidney; R35.0 Frequency of micturition; R50.9 Fever, unspecified; R10.9 Unspecified abdominal pain; E87.1 Hypo-osmolality and hyponatremia; E27.9 Disorder of adrenal gland, unspecified; F17.200 Nicotine dependence, unspecified, uncomplicated; I10 Essential (primary) hypertension; J45.909 Unspecified asthma, uncomplicated; E11.9 Type 2 diabetes mellitus without complications; Z88.8 Allergy status to other drugs, medicaments and biological substances; Z88.0 Allergy status to penicillin; Z88.2 Allergy status to sulfonamides; Z90.49 Acquired absence of other specified parts of digestive tract
CPT/HCPCS: 96376; 99284; 96361; 96374; 96375; 36415; 87040; 87086; 82962; 83690; 84703; 85025; 87077; 87088; 80053; 81001; 83605; 71045; 74177; J1885; J2405; J7030; J0696; 87186

== ENCOUNTER 2018-12-30 09:37 | Observation (INO) | payer OTHER ==
--- NOTE | 2018-12-30 09:52 | ER Document Report ---
ED Medical Screen (RME) - General Chief Complaint: Nausea/Vomiting Stated Complaint: REVISIT/NAUSEA, VOMITING Time Seen by Provider: 12/30/18 09:46 Mode of Arrival: Ambulatory Information source: Patient Notes: 43-year-old female presents to ED for complaint of continued nausea and vomiting and abdominal cramping. She states she started the symptoms on Wednesday was diagnosed with a UTI started on Cipro and Zofran. She was told she continued to have nausea and vomiting to return to the ED. She states on she vomited a couple times and then this morning she is vomited a couple times with some abdominal cramping. She states she return to the ED because she is continuing to have the cramping kind of feeling clammy and nauseated. She is alert oriented respirations regular and unlabored speaking with full sentences walks with even steady gait. I have greeted and performed a rapid initial assessment of this patient. A comprehensive ED assessment and evaluation of the patient, analysis of test results and completion of medical decision making process will be conducted by an additional ED providers. TRAVEL OUTSIDE OF THE [place] IN LAST 30 DAYS: No - Related Data Allergies/Adverse Reactions: iodine [Iodine] Allergy (Verified 12/30/18 09:49) lisinopril Allergy (Verified 12/30/18 09:49) Penicillins Allergy (Verified 12/30/18 09:49) Sulfa (Sulfonamide Antibiotics) Allergy (Verified 12/30/18 09:49) Past Medical History - Social History Family history: None - Past Medical History Cardiac Medical History: Reports: Hx Hypertension Pulmonary Medical History: Reports: Hx Asthma Endocrine Medical History: Reports: Hx Diabetes Mellitus Type 2 Renal/ Medical History: Denies: Hx Peritoneal Dialysis Past Surgical History: Reports: Hx Breast Surgery - cyst removals, Hx Cholecystectomy, Other - multiple abscess drainages. - Immunizations Hx Diphtheria, Pertussis, Tetanus Vaccination: - unknown Physical Exam - Vital signs Vitals: Temp Pulse Resp BP Pulse Ox 98.7 F 96 18 178/101 H 100 12/30/18 09:43 12/30/18 09:43 12/30/18 09:43 12/30/18 09:43 12/30/18 09:43 Course - Vital Signs Vital signs: Temp Pulse Resp BP Pulse Ox 99.3 F 94 12 185/106 H 100 12/30/18 14:49 12/30/18 14:49 12/30/18 14:49 12/30/18 14:49 12/30/18 14:49 - Laboratory Result Diagrams: 12/30/18 10:05 12/30/18 10:05 Laboratory results interpreted by me: 12/30/18 12/30/18 12/30/18 09:55 10:05 10:05 Hgb 10.8 L Hct 32.2 L RDW 16.8 H Sodium 136.7 L Potassium 3.5 L Glucose 153 H Urine Protein 100 H Urine Blood SMALL H Ur Leukocyte Esterase LARGE H Doctor's Discharge - Discharge Clinical Impression: Urinary tract infection, Failure of outpatient therapy Condition: Good Disposition: ADMITTED INPATIENT
[2018-12-30] MEDS ORDERED: NORMAL SALINE 1000 ML 1,000 ML IV ONE (09:53)
[2018-12-30] MEDS ORDERED: PROMETHAZINE HCL 25 MG TABLET PO ONE (09:53)
[2018-12-30 10:17] LABS: ABSOLUTE LYMPHOCYTES (AUTO) 1.1 10^3/uL (0.5-4.7); ABSOLUTE MONOCYTES (AUTO) 0.7 10^3/uL (0.1-1.4); ABSOLUTE NEUT (AUTO) 5.4 10^3/uL (1.7-8.2); BASOPHILS % (AUTO) 0.4 % (0-2); EOSINOPHILS % (AUTO) 0.3 % (0-6); HEMATOCRIT 32.2 % (36.0-47.0); HEMOGLOBIN 10.8 g/dL (12.0-15.5); LYMPHOCYTES % (AUTO) 15.1 % (13-45); MEAN CORPUSCULAR HEMOGLOBIN 27.7 pg (27.0-33.4); MEAN CORPUSCULAR HGB CONC 33.6 g/dL (32.0-36.0); MEAN CORPUSCULAR VOLUME 82 fl (80-97); MONOCYTES % (AUTO) 10.2 % (3-13); PLATELET COUNT 199 10^3/uL (150-450); RED CELL DISTRIBUTION WIDTH 16.8 % (11.5-14.0); TOTAL CELLS COUNTED % (AUTO) 100 %; WHITE BLOOD COUNT 7.3 10^3/uL (4.0-10.5)
[2018-12-30 10:39] LABS: ALBUMIN 3.6 g/dL (3.5-5.0); ALKALINE PHOSPHATASE 72 U/L (38-126); ANION GAP 9 (5-19); ASPARTATE AMINO TRANSFERASE 18 U/L (14-36); BILIRUBIN,DIRECT 0.4 mg/dL (0.0-0.4); BILIRUBIN,TOTAL 0.8 mg/dL (0.2-1.3); BLOOD UREA NITROGEN 9 mg/dL (7-20); CALCIUM 8.6 mg/dL (8.4-10.2); CARBON DIOXIDE 29 mmol/L (22-30); CHLORIDE 99 mmol/L (98-107); GLUCOSE 153 mg/dL (75-110); POTASSIUM 3.5 mmol/L (3.6-5.0); TOTAL PROTEIN 6.8 g/dL (6.3-8.2)
[2018-12-30 11:10] LABS: APPEARANCE,URINE SLIGHTLY-CLOUDY; BILIRUBIN,URINE NEGATIVE (NEGATIVE); COLOR,URINE YELLOW; GLUCOSE, URINE NEGATIVE (NEGATIVE); KETONES,URINE NEGATIVE (NEGATIVE); LEUKOCYTE ESTERASE,URINE LARGE (NEGATIVE); NITRITE,URINE NEGATIVE (NEGATIVE); PROTEIN,URINE 100 mg/dL (NEGATIVE); UROBILINOGEN,URINE NEGATIVE mg/dL (<2.0)
[2018-12-30] MEDS ORDERED: LEVOFLOXACIN 750 MG TABLET PO ONE (11:57)
--- NOTE | 2018-12-30 12:02 | ER Document Report ---
ED General - General Chief Complaint: Nausea/Vomiting Stated Complaint: REVISIT/NAUSEA, VOMITING Time Seen by Provider: 12/30/18 09:46 Primary Care Provider: AUGIE EVANS PA-C [Primary Care Provider] - Follow up as needed Mode of Arrival: Ambulatory TRAVEL OUTSIDE OF THE [place] IN LAST 30 DAYS: No - HPI Notes: Presents with persistent nausea vomiting after being diagnosed with urinary tract infection 2 days ago and placed on Cipro. Blood cultures been negative at this time urine culture shows E. coli sensitive to Cipro which she was placed on. - Related Data Allergies/Adverse Reactions: iodine [Iodine] Allergy (Verified 12/30/18 09:49) lisinopril Allergy (Verified 12/30/18 09:49) Penicillins Allergy (Verified 12/30/18 09:49) Sulfa (Sulfonamide Antibiotics) Allergy (Verified 12/30/18 09:49) Past Medical History - General Information source: Patient - Social History Smoking Status: Current Every Day Smoker Chew tobacco use (# tins/day): No Frequency of alcohol use: Social Drug Abuse: None Family History: Reviewed & Not Pertinent Patient has suicidal ideation: No Patient has homicidal ideation: No - Past Medical History Cardiac Medical History: Reports: Hx Hypertension Pulmonary Medical History: Reports: Hx Asthma Endocrine Medical History: Reports: Hx Diabetes Mellitus Type 2 Renal/ Medical History: Denies: Hx Peritoneal Dialysis Past Surgical History: Reports: Hx Breast Surgery - cyst removals, Hx Cholecystectomy, Other - multiple abscess drainages. - Immunizations Hx Diphtheria, Pertussis, Tetanus Vaccination: - unknown Review of Systems - Review of Systems Constitutional: No symptoms reported EENT: No symptoms reported Cardiovascular: No symptoms reported Respiratory: No symptoms reported Gastrointestinal: See HPI Genitourinary: See HPI Female Genitourinary: No symptoms reported Musculoskeletal: No symptoms reported Skin: No symptoms reported Hematologic/Lymphatic: No symptoms reported Neurological/Psychological: No symptoms reported Physical Exam - Vital signs Vitals: Temp Pulse Resp BP Pulse Ox 98.7 F 97 18 178/101 H 99 12/30/18 09:56 12/30/18 09:56 12/30/18 09:56 12/30/18 09:56 12/30/18 09:56 - General General appearance: Appears well, Alert - HEENT Head: Normocephalic, Atraumatic - Respiratory Respiratory status: No respiratory distress Chest status: Nontender - Cardiovascular Rhythm: Regular Heart sounds: Normal auscultation Murmur: No - Abdominal Inspection: Normal Distension: No distension - Genitourinary Notes: Dysuria Course - Re-evaluation Re-evalutation: 12/30/18 12:00 Patient is failed outpatient therapy Levaquin is sensitive to E. coli she is groin was provided 1 dose IV in the emergency department will be admitted at this time. - Vital Signs Vital signs: Temp Pulse Resp BP Pulse Ox 98.7 F 97 18 178/101 H 99 12/30/18 09:56 12/30/18 09:56 12/30/18 09:56 12/30/18 09:56 12/30/18 09:56 - Laboratory Result Diagrams: 12/30/18 10:05 12/30/18 10:05 Laboratory results interpreted by me: 12/30/18 12/30/18 12/30/18 09:55 10:05 10:05 Hgb 10.8 L Hct 32.2 L RDW 16.8 H Sodium 136.7 L Potassium 3.5 L Glucose 153 H Urine Protein 100 H Urine Blood SMALL H Ur Leukocyte Esterase LARGE H Discharge - Discharge Clinical Impression: Failure of outpatient therapy Urinary tract infection Qualifiers: Urinary tract infection type: acute cystitis Hematuria presence: without hematuria Qualified Code(s): N30.00 - Acute cystitis without hematuria Condition: Good Disposition: ADMITTED INPATIENT Admitting Provider: Laura (Hospitalist) Unit Admitted: Medical Floor Referrals: AUGIE EVANS PA-C [Primary Care Provider] - Follow up as needed
[2018-12-30] MEDS: LEVOFLOXACIN 750 MG/D5W RTU 750 MG/150 ML RTUPB IV ONE ×2 (12:08→12:09)
[2018-12-30] MEDS ORDERED: ONDANSETRON HCL INJ/PF 4 MG/2 ML SDV IV PRN (12:38)
[2018-12-30] MEDS ORDERED: NORMAL SALINE 1000 ML 1,000 ML IV PRN (12:38)
[2018-12-30] MEDS ORDERED: DEXTROSE 40% GEL 15 GM TUBE PO PRN ×2 (12:44)
[2018-12-30] MEDS ORDERED: GLUCAGON,HUMAN RECOMB 1 MG INJ IM PRN (12:44)
[2018-12-30] MEDS ORDERED: DEXTROSE 50%-WATER 25 GM/50 ML DISP.SYRIN IV PRN ×2 (12:44)
--- NOTE | 2018-12-30 12:47 | Progress Note Acknowledgement ---
Progress Note Acknowledgement Progess Note Acknowledgement: I, the undersigned member of the medical staff with appropriate privileges and with supervisory authority over [Sunday Augustin], a dependent practice allied health professional, acknowledge that I have reviewed the progress notes entered on this patient, and in my professional judgment believe that the assessment made and/or any care evidenced was appropriate
[2018-12-30] MEDS: CEFTRIAXONE 2 GM/D5W RTU 2 GM/50 ML RTUPB IV SCH (12:48)
--- NOTE | 2018-12-30 12:52 | PDOC H&P ---
History of Present Illness Admission Date/PCP: 12/30/18 12:07 AUGIE EVANS PA-C Patient complains of: Mild lower abdominal discomfort and low back pain History of Present Illness: LEONCIO MATTSON is a 43 year old female who presents the ER with a several day history of UTI. Patient was taken Cipro on outpatient basis with no resolution of symptoms. Patient states no other treatment prior to arrival no true aggravating factors. Past Medical History Cardiac Medical History: Reports: Hypertension Pulmonary Medical History: Reports: Asthma Endocrine Medical History: Reports: Diabetes Mellitus Type 2 Hematology: Reports: Anemia Past Surgical History Past Surgical History: Reports: Cholecystectomy, Other - multiple abscess drainages. Social History Information Source: Patient Lives with: Family Smoking Status: Current Every Day Smoker Cigarettes Packs Per Day: 1 Frequency of Alcohol Use: None Hx Recreational Drug Use: No Drugs: None Hx Prescription Drug Abuse: No - Advance Directive Resuscitation Status: Full Code Family History Family History: DM, Hyperlipidemia, Hypertension Parental Family History Reviewed: Yes Children Family History Reviewed: Yes Sibling(s) Family History Reviewed.: Yes Medication/Allergy Allergies/Adverse Reactions: iodine [Iodine] Allergy (Verified 12/30/18 09:49) lisinopril Allergy (Verified 12/30/18 09:49) Penicillins Allergy (Verified 12/30/18 09:49) Sulfa (Sulfonamide Antibiotics) Allergy (Verified 12/30/18 09:49) Review of Systems Constitutional: ABSENT: chills, fever(s), headache(s), weight gain, weight loss Eyes: ABSENT: visual disturbances Ears: ABSENT: hearing changes Cardiovascular: ABSENT: chest pain, dyspnea on exertion, edema, orthropnea, palpitations Respiratory: ABSENT: cough, hemoptysis Gastrointestinal: PRESENT: other - Lower abdominal discomfort. ABSENT: abdominal pain, constipation, diarrhea, hematemesis, hematochezia, nausea, vomiting Genitourinary: ABSENT: dysuria, hematuria Musculoskeletal: PRESENT: other - Low back pain. ABSENT: joint swelling Integumentary: ABSENT: rash, wounds Neurological: ABSENT: abnormal gait, abnormal speech, confusion, dizziness, focal weakness, syncope Psychiatric: ABSENT: anxiety, depression, homidical ideation, suicidal ideation Endocrine: ABSENT: cold intolerance, heat intolerance, polydipsia, polyuria Hematologic/Lymphatic: ABSENT: easy bleeding, easy bruising Physical Exam Vital Signs: Temp Pulse Resp BP Pulse Ox 98.7 F 97 18 178/101 H 99 12/30/18 09:56 12/30/18 09:56 12/30/18 09:56 12/30/18 09:56 12/30/18 09:56 Intake & Output 12/29/18 12/30/18 12/31/18 06:59 06:59 06:59 Intake Total 1000 Balance 1000 Weight 122.8 kg General appearance: PRESENT: no acute distress, well-developed, well-nourished Head exam: PRESENT: atraumatic, normocephalic Eye exam: PRESENT: conjunctiva pink, EOMI, PERRLA. ABSENT: scleral icterus Ear exam: PRESENT: normal external ear exam Mouth exam: PRESENT: moist, tongue midline Neck exam: ABSENT: carotid bruit, JVD, lymphadenopathy, thyromegaly Respiratory exam: PRESENT: clear to auscultation debbie. ABSENT: rales, rhonchi, wheezes Cardiovascular exam: PRESENT: RRR. ABSENT: diastolic murmur, rubs, systolic murmur Pulses: PRESENT: normal dorsalis pedis pul Vascular exam: PRESENT: normal capillary refill GI/Abdominal exam: PRESENT: normal bowel sounds, soft. ABSENT: distended, guarding, mass, organolmegaly, rebound, tenderness Rectal exam: PRESENT: deferred Extremities exam: PRESENT: full ROM. ABSENT: calf tenderness, clubbing, pedal edema Neurological exam: PRESENT: alert, awake, oriented to person, oriented to place, oriented to time, oriented to situation, CN II-XII grossly intact. ABSENT: motor sensory deficit Psychiatric exam: PRESENT: appropriate affect, normal mood. ABSENT: homicidal ideation, suicidal ideation Skin exam: PRESENT: dry, intact, warm. ABSENT: cyanosis, rash Results Laboratory Results: 12/30/18 10:05 12/30/18 10:05 12/30/18 12/30/18 12/30/18 09:55 10:05 10:05 WBC 7.3 RBC 3.90 Hgb 10.8 L Hct 32.2 L MCV 82 MCH 27.7 MCHC 33.6 RDW 16.8 H Plt Count 199 Seg Neutrophils % 74.0 Sodium 136.7 L Potassium 3.5 L Chloride 99 Carbon Dioxide 29 Anion Gap 9 BUN 9 Creatinine 0.66 Est GFR ( Amer) > 60 Glucose 153 H Calcium 8.6 Total Bilirubin 0.8 AST 18 Alkaline Phosphatase 72 Total Protein 6.8 Albumin 3.6 Lipase 41.6 Urine Color YELLOW Urine Appearance SLIGHTLY-CLOUDY Urine pH 6.0 Ur Specific [place] 1.010 Urine Protein 100 H Urine Glucose (UA) NEGATIVE Urine Ketones NEGATIVE Urine Blood SMALL H Urine Nitrite NEGATIVE Ur Leukocyte Esterase LARGE H Urine WBC (Auto) 96 Urine RBC (Auto) 2 Assessment and Plan - Diagnosis (1) Urinary tract infection Qualifiers: Urinary tract infection type: acute cystitis Hematuria presence: without hematuria Qualified Code(s): N30.00 - Acute cystitis without hematuria Is this a current diagnosis for this admission?: Yes Plan: December 30, 2018-as patient failed on fluoroquinolones I will place patient on Rocephin 2 g IV daily to cover gram negatives. Will await cultures. (2) Diabetes mellitus Qualifiers: Diabetes mellitus type: type 2 Diabetes mellitus complication status: without complication Is this a current diagnosis for this admission?: Yes Plan: December 30, 2018-once medication rec is completed I will order home medications. Sliding scale insulin before meals and at bedtime with a carbohydrate diet. (3) Hypertension Is this a current diagnosis for this admission?: Yes Plan: December 30, 2018-I will resume all home medications once reconciliation is complete. I will titrate to effect (4) Nausea and vomiting Is this a current diagnosis for this admission?: Yes Plan: December 30, 2018-Zofran 4 mill grams IV every 8 hours as needed nausea vomiting (5) Hypokalemia Is this a current diagnosis for this admission?: Yes Plan: December 30, 2018-40 kcl p.o. times 1 repeat potassium level in a.m. - Time Time Spent with patient: 35 or more minutes
--- NOTE | 2018-12-30 12:53 | ADVANCED CARE ---
- Diagnosis (1) Urinary tract infection Diagnosis Current: Yes (2) Diabetes mellitus Diagnosis Current: Yes (3) Hypertension Diagnosis Current: Yes (4) Nausea and vomiting Diagnosis Current: Yes (5) Hypokalemia Diagnosis Current: Yes Attendance: Patient and myself Resuscitation Status: Full Code Discussion: Discussed plan of care with patient. Will place patient in office give her Rocephin 2 g IV daily, Pyridium for bladder spasms, and low-dose Percocet 5 mg/325 1 p.o. every 4 hours as needed for her low back pain. Patient is in agreement with plan of care Care Planning Goals: 1-Rocephin 2 g IV daily 2-Pyridium for bladder spasms 3-Percocet for low back pain 4-discharged on appropriate antibiotics. Time Spent: 20 minutes
[2018-12-30] MEDS ORDERED: POTASSIUM CHLORIDE 10 MEQ CAPSULE.ER PO ONE ×3 (14:00→16:58)
[2018-12-30] MEDS ORDERED: PHENAZOPYRIDINE HCL 100 MG TABLET PO SCH (14:00)
[2018-12-30] MEDS: HYDRALAZINE HCL INJ/PF 20 MG/1 ML SDV IV PRN (16:53)
[2018-12-30] MEDS: INSULIN REG, HUMAN 100 UNIT/ML 3 ML VIAL (PYX) SUBCUT SCH ×2 (17:09→22:08)
[2018-12-30] MEDS: PHENAZOPYRIDINE HCL 100 MG TABLET PO SCH (17:59)
[2018-12-30] MEDS: OXYCODONE-ACETAMINOPHEN 5-325 MG TABLET PO PRN (21:15)
[2018-12-30] MEDS: ZOLPIDEM TARTRATE 5 MG TABLET PO PRN (21:15)
[2018-12-31] MEDS: HYDRALAZINE HCL INJ/PF 20 MG/1 ML SDV IV PRN ×2 (00:46→18:18)
[2018-12-31] MEDS: PHENAZOPYRIDINE HCL 100 MG TABLET PO SCH ×3 (05:01→21:23)
[2018-12-31 07:08] LABS: ABSOLUTE EOSINOPHILS # (AUTO) 0.1 10^3/uL (0.0-0.6); ABSOLUTE LYMPHOCYTES (AUTO) 1.2 10^3/uL (0.5-4.7); ABSOLUTE MONOCYTES (AUTO) 0.7 10^3/uL (0.1-1.4); ABSOLUTE NEUT (AUTO) 4.2 10^3/uL (1.7-8.2); BASOPHILS % (AUTO) 0.5 % (0-2); EOSINOPHILS % (AUTO) 0.9 % (0-6); HEMATOCRIT 29.4 % (36.0-47.0); LYMPHOCYTES % (AUTO) 19.4 % (13-45); MEAN CORPUSCULAR HEMOGLOBIN 27.8 pg (27.0-33.4); MEAN CORPUSCULAR HGB CONC 33.8 g/dL (32.0-36.0); MEAN CORPUSCULAR VOLUME 82 fl (80-97); MONOCYTES % (AUTO) 11.4 % (3-13); PLATELET COUNT 186 10^3/uL (150-450); RED BLOOD COUNT 3.58 10^6/uL (3.72-5.28); RED CELL DISTRIBUTION WIDTH 17.1 % (11.5-14.0); SEGMENTED NEUTROPHILS % (AUTO) 67.8 % (42-78); TOTAL CELLS COUNTED % (AUTO) 100 %; WHITE BLOOD COUNT 6.2 10^3/uL (4.0-10.5)
[2018-12-31 07:42] LABS: ANION GAP 8 (5-19); BLOOD UREA NITROGEN 6 mg/dL (7-20); CALCIUM 8.1 mg/dL (8.4-10.2); CARBON DIOXIDE 25 mmol/L (22-30); CHLORIDE 105 mmol/L (98-107); GLUCOSE 145 mg/dL (75-110); POTASSIUM 3.4 mmol/L (3.6-5.0)
[2018-12-31] MEDS: OXYCODONE-ACETAMINOPHEN 5-325 MG TABLET PO PRN ×2 (08:02→21:19)
[2018-12-31] MEDS: INSULIN REG, HUMAN 100 UNIT/ML 3 ML VIAL (PYX) SUBCUT SCH ×4 (08:15→21:28)
[2018-12-31] MEDS ORDERED: (PENDING PHARMACY ID) (Exenatide Microspheres [Bydureon Bcise] 2 MG) SQ SCH (09:30)
--- NOTE | 2018-12-31 09:40 | PDOC PROGRESS REPORT ---
Subjective Progress Note for:: 12/31/18 Subjective:: 43 year old female who presents the ER with a several day history of UTI. Patient was taken Cipro on outpatient basis with no resolution of symptoms. Patient states no other treatment prior to arrival no true aggravating factors. 12/31/[id number]-xtrf-old female admitted after failed outpatient treatment for UTI. No more nausea no more vomiting's. Able to tolerate the diet. Able to sleep well last night. Urine cultures are pending. Reason For Visit: UTI, HYPERTENSION Physical Exam Vital Signs: Temp Pulse Resp BP Pulse Ox 98.5 F 83 17 167/93 H 98 12/31/18 00:14 12/31/18 00:14 12/31/18 00:14 12/31/18 00:14 12/31/18 00:14 Intake & Output 12/30/18 12/31/18 01/01/19 06:59 06:59 06:59 Intake Total 2550 Balance 2550 Weight 124.2 kg General appearance: PRESENT: no acute distress, morbidly obese Head exam: PRESENT: atraumatic Eye exam: PRESENT: PERRLA Mouth exam: PRESENT: moist, tongue midline Teeth exam: PRESENT: poor dentation Neck exam: ABSENT: carotid bruit, JVD, lymphadenopathy, thyromegaly Respiratory exam: PRESENT: decreased breath sounds Cardiovascular exam: PRESENT: RRR. ABSENT: diastolic murmur, rubs, systolic murmur GI/Abdominal exam: PRESENT: normal bowel sounds, soft. ABSENT: distended, guarding, mass, organolmegaly, rebound, tenderness Rectal exam: PRESENT: deferred Extremities exam: PRESENT: full ROM. ABSENT: calf tenderness, clubbing, pedal edema Neurological exam: PRESENT: alert, awake, oriented to person, oriented to place, oriented to time, oriented to situation, CN II-XII grossly intact. ABSENT: motor sensory deficit Skin exam: PRESENT: dry, intact, warm. ABSENT: cyanosis, rash Results Laboratory Results: 12/31/18 05:59 12/31/18 05:59 12/30/18 12/30/18 12/30/18 09:55 10:05 10:05 WBC 7.3 RBC 3.90 Hgb 10.8 L Hct 32.2 L MCV 82 MCH 27.7 MCHC 33.6 RDW 16.8 H Plt Count 199 Seg Neutrophils % 74.0 Sodium 136.7 L Potassium 3.5 L Chloride 99 Carbon Dioxide 29 Anion Gap 9 BUN 9 Creatinine 0.66 Est GFR ( Amer) > 60 Glucose 153 H Calcium 8.6 Total Bilirubin 0.8 AST 18 Alkaline Phosphatase 72 Total Protein 6.8 Albumin 3.6 Lipase 41.6 Urine Color YELLOW Urine Appearance SLIGHTLY-CLOUDY Urine pH 6.0 Ur Specific [place] 1.010 Urine Protein 100 H Urine Glucose (UA) NEGATIVE Urine Ketones NEGATIVE Urine Blood SMALL H Urine Nitrite NEGATIVE Ur Leukocyte Esterase LARGE H Urine WBC (Auto) 96 Urine RBC (Auto) 2 12/31/18 12/31/18 05:59 05:59 WBC 6.2 RBC 3.58 L Hgb 10.0 L Hct 29.4 L MCV 82 MCH 27.8 MCHC 33.8 RDW 17.1 H Plt Count 186 Seg Neutrophils % 67.8 Sodium 137.9 Potassium 3.4 L Chloride 105 Carbon Dioxide 25 Anion Gap 8 BUN 6 L Creatinine 0.58 Est GFR ( Amer) > 60 Glucose 145 H Calcium 8.1 L Total Bilirubin AST Alkaline Phosphatase Total Protein Albumin Lipase Urine Color Urine Appearance Urine pH Ur Specific [place] Urine Protein Urine Glucose (UA) Urine Ketones Urine Blood Urine Nitrite Ur Leukocyte Esterase Urine WBC (Auto) Urine RBC (Auto) Assessment and Plan - Diagnosis (1) Urinary tract infection Qualifiers: Urinary tract infection type: acute cystitis Hematuria presence: without hematuria Qualified Code(s): N30.00 - Acute cystitis without hematuria Is this a current diagnosis for this admission?: Yes Plan: December 30, 2018-as patient failed on fluoroquinolones I will place patient on Rocephin 2 g IV daily to cover gram negatives. Will await cultures. 12/31/2018-patient was admitted for UTI out failed outpatient treatment with fl uoroquinolones. Patient is presently receiving IV Rocephin 2 g daily. Cultures are pending. Nausea vomiting is resolved. Patient able to tolerate the diet today. (2) Hypokalemia Is this a current diagnosis for this admission?: Yes Plan: December 30, 2018-40 kcl p.o. times 1 repeat potassium level in a.m. 12/31/2018-serum potassium levels today is 3.4 patient is receiving potassium on daily basis. To recheck the labs tomorrow. (3) Diabetes mellitus Qualifiers: Diabetes mellitus type: type 2 Diabetes mellitus complication status: without complication Is this a current diagnosis for this admission?: Yes Plan: December 30, 2018-once medication rec is completed I will order home medications. Sliding scale insulin before meals and at bedtime with a carbohydrate diet. 12/31/2018-patient has history of type 2 diabetes mellitus. Diet exercise weight loss lifestyle modifications are discussed with the patient. Blood sugar is 143. Check for hemoglobin A1c. (4) Hypertension Is this a current diagnosis for this admission?: Yes Plan: December 30, 2018-I will resume all home medications once reconciliation is complete. I will titrate to effect 12/31/2018-patient blood pressure today is 167/93 to restart her home blood pressure medications from today and to discontinue IV fluids. (5) Nausea and vomiting Is this a current diagnosis for this admission?: Yes Plan: December 30, 2018-Zofran 4 mill grams IV every 8 hours as needed nausea vomiting 12/31/2018-patient able to tolerate the diet today receiving Zofran IV on PRN basis. (6) Morbid obesity Is this a current diagnosis for this admission?: No Plan: 12/31/2018-patient BMI is more than 38 diet exercise weight loss lifestyle modifications are discussed with the patient. - Time Time Spent with patient: 15-24 minutes Medications reviewed and adjusted accordingly: Yes Anticipated discharge: Home
[2018-12-31] MEDS: HYDROCHLOROTHIAZIDE 25 MG TABLET PO SCH (09:49)
[2018-12-31] MEDS: METOPROLOL TARTRATE 25 MG TABLET PO SCH ×2 (09:50→21:18)
[2018-12-31] MEDS: AMLODIPINE BESYLATE 10 MG TABLET PO SCH (09:50)
[2018-12-31] MEDS: PIOGLITAZONE HCL 30 MG TABLET PO SCH (12:28)
[2018-12-31] MEDS: POTASSIUM CHLORIDE 10 MEQ CAPSULE.ER PO SCH ×2 (12:28→21:18)
[2018-12-31] MEDS: CEFTRIAXONE 2 GM/D5W RTU 2 GM/50 ML RTUPB IV SCH (12:29)
[2018-12-31] MEDS: ACETAMINOPHEN 325 MG TABLET PO PRN (21:19)
[2018-12-31] MEDS: ZOLPIDEM TARTRATE 5 MG TABLET PO PRN (21:20)
[2019-01-01] MEDS: OXYCODONE-ACETAMINOPHEN 5-325 MG TABLET PO PRN (05:59)
[2019-01-01] MEDS: PHENAZOPYRIDINE HCL 100 MG TABLET PO SCH (05:59)
[2019-01-01] MEDS: ACETAMINOPHEN 325 MG TABLET PO PRN (06:00)
[2019-01-01 06:06] LABS: ABSOLUTE EOSINOPHILS # (AUTO) 0.1 10^3/uL (0.0-0.6); ABSOLUTE MONOCYTES (AUTO) 0.8 10^3/uL (0.1-1.4); ABSOLUTE NEUT (AUTO) 3.1 10^3/uL (1.7-8.2); BASOPHILS % (AUTO) 0.7 % (0-2); EOSINOPHILS % (AUTO) 1.5 % (0-6); HEMATOCRIT 31.8 % (36.0-47.0); HEMOGLOBIN 10.6 g/dL (12.0-15.5); LYMPHOCYTES % (AUTO) 32.5 % (13-45); MEAN CORPUSCULAR HEMOGLOBIN 27.1 pg (27.0-33.4); MEAN CORPUSCULAR HGB CONC 33.4 g/dL (32.0-36.0); MEAN CORPUSCULAR VOLUME 81 fl (80-97); MONOCYTES % (AUTO) 13.8 % (3-13); PLATELET COUNT 209 10^3/uL (150-450); RED BLOOD COUNT 3.91 10^6/uL (3.72-5.28); SEGMENTED NEUTROPHILS % (AUTO) 51.5 % (42-78); TOTAL CELLS COUNTED % (AUTO) 100 %; WHITE BLOOD COUNT 6.1 10^3/uL (4.0-10.5)
[2019-01-01 06:41] LABS: ALBUMIN 3.3 g/dL (3.5-5.0); ALKALINE PHOSPHATASE 83 U/L (38-126); ANION GAP 8 (5-19); ASPARTATE AMINO TRANSFERASE 27 U/L (14-36); BILIRUBIN,DIRECT 0.3 mg/dL (0.0-0.4); BILIRUBIN,TOTAL 0.5 mg/dL (0.2-1.3); BLOOD UREA NITROGEN 7 mg/dL (7-20); CALCIUM 9.1 mg/dL (8.4-10.2); CARBON DIOXIDE 28 mmol/L (22-30); CHLORIDE 102 mmol/L (98-107); GLUCOSE 135 mg/dL (75-110); POTASSIUM 3.5 mmol/L (3.6-5.0); TOTAL PROTEIN 6.5 g/dL (6.3-8.2)
[2019-01-01] MEDS: INSULIN REG, HUMAN 100 UNIT/ML 3 ML VIAL (PYX) SUBCUT SCH ×2 (09:15→12:27)
[2019-01-01] MEDS: PIOGLITAZONE HCL 30 MG TABLET PO SCH (09:16)
[2019-01-01] MEDS: POTASSIUM CHLORIDE 10 MEQ CAPSULE.ER PO SCH (09:16)
[2019-01-01] MEDS: METOPROLOL TARTRATE 25 MG TABLET PO SCH (09:17)
[2019-01-01] MEDS: AMLODIPINE BESYLATE 10 MG TABLET PO SCH (09:17)
[2019-01-01] MEDS: HYDROCHLOROTHIAZIDE 25 MG TABLET PO SCH (09:17)
[2019-01-01] MEDS: CEFTRIAXONE 2 GM/D5W RTU 2 GM/50 ML RTUPB IV SCH (12:28)
[2019-01-01 13:48] VITALS: BP 150/83
--- NOTE | 2019-01-05 13:55 | PDOC DISCHARGE SUMMARY ---
General - Admit/Disc Date/PCP Admission Date/Primary Care Provider: 12/30/18 12:07 AUGIE EVANS PA-C Discharge Date: 01/01/19 - Discharge Diagnosis (1) Urinary tract infection Is this a current diagnosis for this admission?: Yes Summary: December 30, 2018-as patient failed on fluoroquinolones I will place patient on Rocephin 2 g IV daily to cover gram negatives. Will await cultures. 12/31/2018-patient was admitted for UTI out failed outpatient treatment with fluoroquinolones. Patient is presently receiving IV Rocephin 2 g daily. Cultures are pending. Nausea vomiting is resolved. Patient able to tolerate the diet today. 01/01/2019-no acute events in the last 24 hrs .. afebrile urine cultures neg.. going home on po antibiotics today (2) Hypokalemia Is this a current diagnosis for this admission?: Yes Summary: December 30, 2018-40 kcl p.o. times 1 repeat potassium level in a.m. 12/31/2018-serum potassium levels today is 3.4 patient is receiving potassium on daily basis. To recheck the labs tomorrow. 01/01/19- hypokalemia is resolved (3) Diabetes mellitus Is this a current diagnosis for this admission?: Yes Summary: December 30, 2018-once medication rec is completed I will order home medications. Sliding scale insulin before meals and at bedtime with a carbohydrate diet. 12/31/2018-patient has history of type 2 diabetes mellitus. Diet exercise weight loss lifestyle modifications are discussed with the patient. Blood sugar is 143. Check for hemoglobin A1c. 01/01/19- latest blod sugar is 186 and advised to continue home meds (4) Hypertension Is this a current diagnosis for this admission?: Yes Summary: December 30, 2018-I will resume all home medications once reconciliation is complete. I will titrate to effect 12/31/2018-patient blood pressure today is 167/93 to restart her home blood pressure medications from today and to discontinue IV fluids. (5) Nausea and vomiting Is this a current diagnosis for this admission?: Yes Summary: December 30, 2018-Zofran 4 mill grams IV every 8 hours as needed nausea vomiting 12/31/2018-patient able to tolerate the diet today receiving Zofran IV on PRN basis. 01/01/19- nausea and vomiings resolved (6) Morbid obesity Is this a current diagnosis for this admission?: No - Additional Information Resuscitation Status: Full Code Discharge Diet: Diabetic Discharge Activity: Activity As Tolerated Home Medications: Amlodipine Besylate [Norvasc 10 mg Tablet] 10 mg PO DAILY 12/30/18 Exenatide Microspheres [Bydureon Bcise] 2 mg SQ .QWEEKLY 12/30/18 Metoprolol Tartrate [Lopressor 25 mg Tablet] 25 mg PO BID 12/30/18 Pioglitazone HCl [Actos] 30 mg PO DAILY 12/30/18 History of Present Illness History of Present Illness: LEONCIO MATTSON is a 43 year old female 43 year old female who presents the ER with a several day history of UTI. Patient was taken Cipro on outpatient basis with no resolution of symptoms. Patient states no other treatment prior to arrival no true aggravating factors. Hospital Course Hospital Course: 43 year old female who presents the ER with a several day history of UTI. Patient was taken Cipro on outpatient basis with no resolution of symptoms. Patient states no other treatment prior to arrival no true aggravating factors. 12/31/[id number]-inuy-old female admitted after failed outpatient treatment for UTI. No more nausea no more vomiting's. Able to tolerate the diet. Able to sleep well last night. Urine cultures are pending. Physical Exam Vital Signs: Temp Pulse Resp BP Pulse Ox 98.5 F 87 16 150/83 H 98 01/01/19 13:47 01/01/19 13:47 01/01/19 13:47 01/01/19 13:47 01/01/19 13:47 General appearance: PRESENT: no acute distress, morbidly obese Head exam: PRESENT: atraumatic Mouth exam: PRESENT: moist, tongue midline Neck exam: ABSENT: carotid bruit, JVD, lymphadenopathy, thyromegaly Respiratory exam: PRESENT: clear to auscultation debbie. ABSENT: rales, rhonchi, wheezes Cardiovascular exam: PRESENT: RRR. ABSENT: diastolic murmur, rubs, systolic murmur GI/Abdominal exam: PRESENT: normal bowel sounds, soft. ABSENT: distended, guarding, mass, organolmegaly, rebound, tenderness Rectal exam: PRESENT: deferred Extremities exam: PRESENT: full ROM. ABSENT: calf tenderness, clubbing, pedal edema Neurological exam: PRESENT: alert, awake, oriented to person, oriented to place, oriented to time, oriented to situation, CN II-XII grossly intact. ABSENT: motor sensory deficit Psychiatric exam: PRESENT: appropriate affect, normal mood. ABSENT: homicidal ideation, suicidal ideation Results Laboratory Results: 01/01/19 05:24 01/01/19 05:24 Qualifiers - * PATIENT BEING DISCHARGED WITH ANY OF THE FOLLOWING DIAGNOSIS: No VTE patient discharged on overlapping Therapy?: No Acute Heart Failure - Is this a Heart Failure Patient?: No
== END 2019-01-01 14:05 | disposition home or self-care (01) ==
LOC: ER 09:37 → INTOOBSV 12:07 → EH 12:07 → 4N 14:34
PROVIDERS: ADMIT Internal Medicine; ATTEND Internal Medicine
DX: N30.00 Acute cystitis without hematuria (principal); B96.20 Unspecified Escherichia coli [E. coli] as the cause of diseases classified elsewhere; Z16.23 Resistance to quinolones and fluoroquinolones; E87.6 Hypokalemia; E11.9 Type 2 diabetes mellitus without complications; I10 Essential (primary) hypertension; R11.2 Nausea with vomiting, unspecified; E66.01 Morbid (severe) obesity due to excess calories; F17.210 Nicotine dependence, cigarettes, uncomplicated; M54.5 Low back pain; Z68.38 Body mass index [BMI] 38.0-38.9, adult; Z79.899 Other long term (current) drug therapy; Z79.84 Long term (current) use of oral hypoglycemic drugs; Z90.49 Acquired absence of other specified parts of digestive tract; Z88.0 Allergy status to penicillin; Z88.2 Allergy status to sulfonamides
CPT/HCPCS: 99284; 96360; 36415 ×3; 87086; 82962 ×3; 83690; 85025 ×3; 80048; 80053 ×2; 81001; G0378 ×4; J0360 ×2; J3490 ×5; J1815 ×2; J2405; J7030; J0696 ×3; J1956

== ENCOUNTER 2019-02-04 00:51 | Emergency (ER) | payer OTHER ==
[2019-02-04] MEDS ORDERED: NORMAL SALINE 1000 ML 1,000 ML IV ONE (01:25)
[2019-02-04] MEDS ORDERED: ONDANSETRON HCL INJ/PF 4 MG/2 ML SDV IV ONE (01:25)
[2019-02-04] MEDS ORDERED: ACETAMINOPHEN 325 MG TABLET PO ONE (01:25)
--- NOTE | 2019-02-04 01:28 | ER Document Report ---
ED Medical Screen (RME) - General Chief Complaint: Fever Stated Complaint: FEVER/VOMITING Time Seen by Provider: 02/04/19 01:20 Primary Care Provider: AUGIE EVANS PA-C [Primary Care Provider] - Follow up as needed Notes: Patient is a 43-year-old female presents to the emergency department for generalized chills, fever, nausea, vomiting, right upper abdominal pain. States she does have a history of a cholecystectomy. Patient also complaining of generalized diarrhea. Is denying any dysuria. GENERAL: Alert, interacts well. No acute distress. ABDOMEN: Soft, generalized right upper quadrant abdominal pain noted. Non- distended. Bowel sounds present in all 4 quadrants. I have greeted and performed a rapid initial assessment of this patient. A comprehensive ED assessment and evaluation of the patient, analysis of test results and completion of the medical decision making process will be conducted by additional ED providers. I have specifically instructed the patient or family members with the patient to immediately return to any nursing staff should anything change in the patient's condition or with their chief complaint. This medical record was dictated with voice recognizing software. There may be grammatical, syntax errors that are unintended. TRAVEL OUTSIDE OF THE [place] IN LAST 30 DAYS: No - Related Data Allergies/Adverse Reactions: iodine [Iodine] Allergy (Verified 02/04/19 01:23) lisinopril Allergy (Verified 02/04/19 01:23) Penicillins Allergy (Verified 02/04/19 01:23) Sulfa (Sulfonamide Antibiotics) Allergy (Verified 02/04/19 01:23) Past Medical History - Social History Family history: None - Past Medical History Cardiac Medical History: Reports: Hx Hypertension Pulmonary Medical History: Reports: Hx Asthma Endocrine Medical History: Reports: Hx Diabetes Mellitus Type 2 Renal/ Medical History: Denies: Hx Peritoneal Dialysis Past Surgical History: Reports: Hx Breast Surgery - cyst removals, Hx Cholecystectomy, Other - multiple abscess drainages. - Immunizations Hx Diphtheria, Pertussis, Tetanus Vaccination: - unknown Physical Exam - Vital signs Vitals: Temp Pulse Resp BP Pulse Ox 100.6 F H 118 H 20 163/110 H 99 02/04/19 00:58 02/04/19 00:58 02/04/19 00:58 02/04/19 00:58 02/04/19 00:58 Course - Vital Signs Vital signs: Temp Pulse Resp BP Pulse Ox 100.6 F H 118 H 20 163/110 H 99 02/04/19 00:58 02/04/19 00:58 02/04/19 00:58 02/04/19 00:58 02/04/19 00:58 Doctor's Discharge - Discharge Referrals: AUGIE EVANS PA-C [Primary Care Provider] - Follow up as needed
--- NOTE | 2019-02-04 02:06 | RADIOLOGY REPORT (SQ) ---
XR CHEST 1 VIEW EXAM DATE: 02/04/2019 1:24 AM CDT HISTORY: Fever. COMPARISON: 12/28/2018 FINDINGS: The heart size is within normal limits. No consolidation, pleural effusion, or pneumothorax is seen. The bony thorax is intact. IMPRESSION: No evidence of acute cardiopulmonary disease.
--- NOTE | 2019-02-04 02:28 | ER Document Report ---
ED General - General Chief Complaint: Fever Stated Complaint: FEVER/VOMITING Time Seen by Provider: 02/04/19 01:20 Primary Care Provider: AUGIE EVANS PA-C [Primary Care Provider] - Follow up in 3-5 days TRAVEL OUTSIDE OF THE [place] IN LAST 30 DAYS: No - HPI Notes: This is a 43-year-old female who presents today with a complaint of generalized body aches, fever, right flank pain since yesterday. Patient also describes some nausea vomiting and diarrhea. Patient states the symptoms started after she went to her sister's house. She wonders if she caught something there. She denies any cough or congestion. She denies any anterior abdominal pain. She describes the symptoms as moderate. There are no obvious aggravating or relieving factors. - Related Data Allergies/Adverse Reactions: iodine [Iodine] Allergy (Verified 02/04/19 01:23) lisinopril Allergy (Verified 02/04/19 01:23) Penicillins Allergy (Verified 02/04/19 01:23) Sulfa (Sulfonamide Antibiotics) Allergy (Verified 02/04/19 01:23) Past Medical History - Social History Smoking Status: Never Smoker Frequency of alcohol use: None Drug Abuse: None Family History: DM, Hyperlipidemia, Hypertension Patient has suicidal ideation: No Patient has homicidal ideation: No - Past Medical History Cardiac Medical History: Reports: Hx Hypertension Pulmonary Medical History: Reports: Hx Asthma Endocrine Medical History: Reports: Hx Diabetes Mellitus Type 2 Renal/ Medical History: Denies: Hx Peritoneal Dialysis Past Surgical History: Reports: Hx Breast Surgery - cyst removals, Hx Cholecystectomy, Other - multiple abscess drainages. - Immunizations Hx Diphtheria, Pertussis, Tetanus Vaccination: - unknown Review of Systems - Review of Systems Constitutional: Fever Gastrointestinal: Abdominal pain, Diarrhea, Nausea, Vomiting Genitourinary: Frequency, Flank pain. denies: Burning, Dysuria Neurological/Psychological: denies: Weakness, Headaches -: Yes All other systems reviewed and negative Physical Exam - Vital signs Vitals: Temp Pulse Resp BP Pulse Ox 100.6 F H 118 H 20 163/110 H 99 02/04/19 00:58 02/04/19 00:58 02/04/19 00:58 02/04/19 00:58 02/04/19 00:58 - General General appearance: Appears well, Alert - Respiratory Respiratory status: No respiratory distress Chest status: Nontender Breath sounds: Normal Chest palpation: Normal - Cardiovascular Rhythm: Regular, Tachycardia Heart sounds: Normal auscultation Murmur: No - Abdominal Inspection: Normal Distension: No distension Bowel sounds: Normal Tenderness: Tender - There is right CVA tenderness. There is very minimal right upper quadrant tenderness. There is no guarding or rebound. Organomegaly: No organomegaly - Extremities General upper extremity: Normal inspection, Nontender, Normal color, Normal ROM, Normal temperature General lower extremity: Normal inspection, Nontender, Normal color, Normal ROM, Normal temperature. No: Dain's sign - Neurological Neuro grossly intact: Yes Cognition: Normal Orientation: AAOx4 [place] Coma Scale Eye Opening: Spontaneous [place] Coma Scale Verbal: Oriented Jc Coma Scale Motor: Obeys Commands Jc Coma Scale Total: 15 Speech: Normal Motor strength normal: LUE, RUE, LLE, RLE Sensory: Normal - Psychological Associated symptoms: Normal affect, Normal mood - Skin Skin Temperature: Warm Skin Moisture: Dry Skin Color: Normal Course - Re-evaluation Re-evalutation: 02/04/19 02:31 Differential diagnosis includes gastroenteritis versus viral syndrome versus UTI versus pyelonephritis versus pneumonia versus bronchitis. Will check basic labs including urinalysis. Will get CT scan. Will check a lactate to rule out any signs of early sepsis. 02/04/19 03:41 Patient reevaluated. She feels much better. No vomiting here. Labs and imaging reviewed. She has clinical evidence of pyelonephritis. Given the leukocytosis, resolution of her nausea, unremarkable vital signs, patient can be managed as an outpatient. We will put her on Cipro. Patient counseled to return if worse or concerns. She understands. She is stable for discharge. - Vital Signs Vital signs: Temp Pulse Resp BP Pulse Ox 98.6 F 98 16 161/89 H 100 02/04/19 04:26 02/04/19 04:26 02/04/19 04:26 02/04/19 04:26 02/04/19 04:26 - Laboratory Result Diagrams: 02/04/19 02:30 02/04/19 02:30 Laboratory results interpreted by me: 02/04/19 02/04/19 02/04/19 02:30 02:30 02:30 Hgb 11.4 L Hct 33.8 L RDW 17.5 H Lymph % (Auto) 9.7 L Seg Neutrophils % 82.9 H Sodium 134.7 L Chloride 97 L BUN 6 L Glucose 260 H Urine Protein 100 H Urine Glucose (UA) 50 H Urine Blood MODERATE H Urine Urobilinogen 2.0 H Ur Leukocyte Esterase LARGE H Discharge - Discharge Clinical Impression: Pyelonephritis Condition: Stable Disposition: HOME, SELF-CARE Instructions: Ciprofloxacin ([facility]), Fever ([facility]), Pyelonephritis ([facility]) Additional Instructions: Return if worse or concerns. Prescriptions: Tramadol HCl [Ultram 50 mg Tablet] 50 mg PO Q4HP PRN #12 tab PRN Reason: Ciprofloxacin HCl [Cipro 500 mg Tablet] 500 mg PO BID #20 tablet Promethazine HCl [Phenergan 25 mg Tablet] 1 tab PO Q6H PRN #15 tablet PRN Reason: Referrals: AUGIE EVANS PA-C [Primary Care Provider] - Follow up in 3-5 days
[2019-02-04 02:43] LABS: ABSOLUTE LYMPHOCYTES (AUTO) 0.9 10^3/uL (0.5-4.7); ABSOLUTE MONOCYTES (AUTO) 0.7 10^3/uL (0.1-1.4); ABSOLUTE NEUT (AUTO) 7.7 10^3/uL (1.7-8.2); BASOPHILS % (AUTO) 0.4 % (0-2); HEMATOCRIT 33.8 % (36.0-47.0); HEMOGLOBIN 11.4 g/dL (12.0-15.5); LYMPHOCYTES % (AUTO) 9.7 % (13-45); MEAN CORPUSCULAR HEMOGLOBIN 27.9 pg (27.0-33.4); MEAN CORPUSCULAR HGB CONC 33.7 g/dL (32.0-36.0); MEAN CORPUSCULAR VOLUME 83 fl (80-97); PLATELET COUNT 235 10^3/uL (150-450); RED BLOOD COUNT 4.09 10^6/uL (3.72-5.28); RED CELL DISTRIBUTION WIDTH 17.5 % (11.5-14.0); SEGMENTED NEUTROPHILS % (AUTO) 82.9 % (42-78); TOTAL CELLS COUNTED % (AUTO) 100 %; WHITE BLOOD COUNT 9.3 10^3/uL (4.0-10.5)
[2019-02-04 03:00] LABS: ALBUMIN 3.9 g/dL (3.5-5.0); ALKALINE PHOSPHATASE 79 U/L (38-126); ANION GAP 11 (5-19); ASPARTATE AMINO TRANSFERASE 28 U/L (14-36); BILIRUBIN,DIRECT 0.1 mg/dL (0.0-0.4); BILIRUBIN,TOTAL 1.1 mg/dL (0.2-1.3); BLOOD UREA NITROGEN 6 mg/dL (7-20); CALCIUM 9.1 mg/dL (8.4-10.2); CARBON DIOXIDE 27 mmol/L (22-30); CHLORIDE 97 mmol/L (98-107); GLUCOSE 260 mg/dL (75-110); POTASSIUM 3.7 mmol/L (3.6-5.0); TOTAL PROTEIN 7.5 g/dL (6.3-8.2)
[2019-02-04 03:10] LABS: APPEARANCE,URINE CLOUDY; BILIRUBIN,URINE NEGATIVE (NEGATIVE); COLOR,URINE YELLOW; GLUCOSE, URINE 50 mg/dL (NEGATIVE); KETONES,URINE NEGATIVE (NEGATIVE); LEUKOCYTE ESTERASE,URINE LARGE (NEGATIVE); NITRITE,URINE NEGATIVE (NEGATIVE); PROTEIN,URINE 100 mg/dL (NEGATIVE); URINE SPECIFIC GRAVITY 1.011
--- NOTE | 2019-02-04 03:33 | RADIOLOGY REPORT (SQ) ---
EXAM DESCRIPTION: CT ABDOMEN PELVIS WITHOUT IV CONTRAST COMPLETED DATE/TME: 02/04/2019 01:54 CLINICAL HISTORY: 43 years, Female, right flank pain, fever. COMPARISON: 12/28/2018 TECHNIQUE: Axial CT images of the abdomen and pelvis were obtained without contrast. Sagittal and coronal reformats were performed. [facility] 1137 Images stored on PACS. All CT scanners at this facility use dose modulation, iterative reconstruction, and/or weight based dosing when appropriate to reduce radiation dose to as low as reasonably achievable (ALARA). [facility]: Dose Right [facility]: CareDose [facility]: Dose Right [facility]: Teradose 4D [facility]: [employer] LIMITATIONS: None. FINDINGS: There is a small area of groundglass opacity along the dependent portion of the left lower lobe. Cholecystectomy. The liver, pancreas, spleen, and right adrenal gland are unremarkable. There is a 2 cm left adrenal nodule which measures approximately 18 Hounsfield units, likely representing adenoma. The right kidney appears mildly edematous with mild stranding along the lower pole. No evidence of urolithiasis or hydronephrosis. The left kidney appears unremarkable with no evidence of urolithiasis or hydronephrosis. There is no intraperitoneal free air or fluid. There is no lymphadenopathy. The stomach, small bowel, appendix, and colon appear unremarkable. The uterus, adnexa, and urinary bladder are unremarkable. There are no lytic or blastic bone lesions. IMPRESSION: Mildly edematous right kidney with stranding along the lower pole. No evidence of urolithiasis or hydronephrosis. This may be due to a recently passed stone or pyelonephritis. TECHNICAL DOCUMENTATION: Quality ID # [id number]: Final reports with documentation of one or more dose reduction techniques (e.g., Automated exposure control, adjustment of the mA and/or kV according to patient size, use of iterative reconstruction technique) copyright 2010 [employer]- All Rights Reserved
[2019-02-04] MEDS ORDERED: CIPROFLOXACIN HCL 500 MG TABLET PO ONE (03:41)
[2019-02-04 04:27] VITALS: BP 161/89
--- NOTE | 2019-02-04 09:02 | EKG REPORT ---
SEVERITY:- OTHERWISE NORMAL ECG - SINUS TACHYCARDIA : Confirmed by: Cedric Queen 04-Feb-2019 09:01:41
== END 2019-02-04 04:26 | disposition home or self-care (01) ==
LOC: ER 00:51
DX: N12 Tubulo-interstitial nephritis, not specified as acute or chronic (principal); R50.9 Fever, unspecified; R11.2 Nausea with vomiting, unspecified; R19.7 Diarrhea, unspecified; R10.9 Unspecified abdominal pain; R35.0 Frequency of micturition; I10 Essential (primary) hypertension; E11.9 Type 2 diabetes mellitus without complications; J45.909 Unspecified asthma, uncomplicated; Z88.8 Allergy status to other drugs, medicaments and biological substances; Z88.0 Allergy status to penicillin; Z88.2 Allergy status to sulfonamides
CPT/HCPCS: 99284; 96361; 96374; 36415; 87040; 87086; 83690; 85025; 81025; 87077; 87088; 80053; 81001; 87186; 83605; 71045; 74176; 93005; 93010; J2405; J7030

== ENCOUNTER → 2019-07-26 | Outpatient (CLI) | payer OTHER ==
--- NOTE | 2019-07-26 08:48 | RADIOLOGY REPORT (SQ) ---
EXAM DESCRIPTION: FOOT RIGHT COMPLETE COMPLETED DATE/TIME: 07/26/2019 8:06 am REASON FOR STUDY: (L97.512)NON-PRS CHRONIC ULCER OTH PRT RIGHT FOOT W FAT LAYER EXPOSED L97.512 NON -PRS CHRONIC ULCER OTH PRT RIGHT FOOT W FAT LAYER COMPARISON: None. NUMBER OF VIEWS: Three views. TECHNIQUE: AP, lateral and oblique radiographic images acquired of the right foot. LIMITATIONS: None. FINDINGS: MINERALIZATION: Decreased, more than expected for patient age. BONES: No acute bony abnormality. Scattered mild degenerative changes at the interphalangeal joints and 1st MTP joint. Os peroneum present. Superior plantar calcaneal enthesophyte. Mild midfoot oste ophytosis. No definitive findings of osteomyelitis. JOINTS: No dislocation. No large effusion. SOFT TISSUES: Soft tissue swelling about the medial mid and forefoot. No radiopaque foreign body. OTHER: No other significant finding. IMPRESSION: 1. No evidence of acute bony abnormality. No definitive findings of osteomyelitis. 2. Scattered degenerative changes as above. Mild medial soft tissue swelling. TECHNICAL DOCUMENTATION: JOB ID: [id number] 2010 [employer]- All Rights Reserved Reading location - IP/workstation name: [email or web address]
--- NOTE | 2019-07-26 10:59 | RADIOLOGY REPORT (SQ) ---
EXAM DESCRIPTION: ARTERIAL LOWER EXTREM BILAT COMPLETED DATE/TIME: 07/26/2019 9:48 am REASON FOR STUDY: RT FOOT ULCER L97.512 NON-PRS CHRONIC ULCER OTH PRT RIGHT FOOT W FAT LAYER COMPARISON: 06/20/2018 TECHNIQUE: Dynamic and static connell scale and color images acquired of the lower extremity arteries. Additional selected spectral images recorded. ABIs recorded. LIMITATIONS: None. FINDINGS: RIGHT LEG: ABIS: 0.99-1.0 INFLOW ARTERIES: Triphasic inflow. Normal velocity. FEMORAL ARTERIES:Triphasic waveforms. Normal, no velocity elevation to suggest focal stenosis. Normal color Doppler evaluation. No aneurysm. POPLITEAL ARTERY:Triphasic waveforms. Normal, no velocity elevation to suggest focal stenosis. Normal color Doppler evaluation. No aneurysm. PATENT TIBIOPERONEAL TRUNK AND 3 VESSEL RUNOFF: Yes, normal vessels. TBI: Not performed. OTHER: No other significant finding. LEFT LEG: ABIS: 0.97-0.99 INFLOW ARTERIES: Triphasic inflow. Normal velocity. FEMORAL ARTERIES:Triphasic waveforms. Normal, no velocity elevation to suggest focal stenosis. Normal color Doppler evaluation. No aneurysm. POPLITEAL ARTERY:Triphasic waveforms. Normal, no velocity elevation to suggest focal stenosis. Normal color Doppler evaluation. No aneurysm. PATENT TIBIOPERONEAL TRUNK AND 3 VESSEL RUNOFF: Multiphasic waveform within the anterior tibial and p osterior tibial arteries. Peroneal artery nonvisualized. TBI: Not performed. OTHER: No other significant finding. IMPRESSION: 1. Grossly normal bilateral waveforms and ABIs as above. 2. Left peroneal artery not well visualized. Otherwise unremarkable exam with multiphasic waveforms throughout and no focal high-grade stenosis. COMMENT: [facility] NORMAL: Greater than 1.0 MINIMAL DISEASE: 0.9 to 1.0 CLAUDICATION: 0.5 to 0.9 SEVERE ARTERIAL DISEASE: Less than 0.5 [facility] NORMAL: Greater than 1.0 (1.2 If Heavy Calcifications) NORMAL TO MILD ISCHEMIA: 0.8 to 1.0 MODERATE ISCHEMIA: 0.4 to 0.8 SEVERE ISCHEMIA: Less than 0.4 TECHNICAL DOCUMENTATION: JOB ID: [id number] 2010 [email or web address]- All Rights Reserved Reading location - IP/workstation name: [email or web address]
--- NOTE | 2019-07-26 11:14 | RADIOLOGY REPORT (SQ) ---
EXAM DESCRIPTION: PHYSIO ARTERIAL LTD COMPLETE DATE/TIME: 07/26/2019 9:48 am REASON FOR STUDY: RT FOOT ULCER L97.512 NON-PRS CHRONIC ULCER OTH PRT RIGHT FOOT W FAT LAYER FINDINGS: Please see combined report for performance of procedure and radiologic supervision and int erpretation. IMPRESSION: Please see combined report for performance of procedure and radiologic supervision and i nterpretation. Reading location - IP/workstation name: [email or web address]
== END ==
LOC: RAD 07:47
PROVIDERS: ATTEND Nurse Practitioner Family
DX: L97.512 Non-pressure chronic ulcer of other part of right foot with fat layer exposed (principal)
CPT/HCPCS: 93922; 93925

== ENCOUNTER → 2019-07-26 | Outpatient (CLI) | payer OTHER ==
[2019-07-26 09:56] LABS: ABSOLUTE EOSINOPHILS # (AUTO) 0.1 10^3/uL (0.0-0.6); ABSOLUTE LYMPHOCYTES (AUTO) 3.2 10^3/uL (0.5-4.7); ABSOLUTE MONOCYTES (AUTO) 0.6 10^3/uL (0.1-1.4); ABSOLUTE NEUT (AUTO) 5.8 10^3/uL (1.7-8.2); BASOPHILS % (AUTO) 0.4 % (0-2); EOSINOPHILS % (AUTO) 1.5 % (0-6); HEMATOCRIT 34.9 % (36.0-47.0); HEMOGLOBIN 11.5 g/dL (12.0-15.5); MEAN CORPUSCULAR HEMOGLOBIN 25.9 pg (27.0-33.4); MEAN CORPUSCULAR HGB CONC 32.9 g/dL (32.0-36.0); MEAN CORPUSCULAR VOLUME 79 fl (80-97); MONOCYTES % (AUTO) 5.8 % (3-13); PLATELET COUNT 279 10^3/uL (150-450); RED BLOOD COUNT 4.44 10^6/uL (3.72-5.28); RED CELL DISTRIBUTION WIDTH 18.3 % (11.5-14.0); SEGMENTED NEUTROPHILS % (AUTO) 59.3 % (42-78); TOTAL CELLS COUNTED % (AUTO) 100 %; WHITE BLOOD COUNT 9.8 10^3/uL (4.0-10.5)
[2019-07-26 10:23] LABS: ALKALINE PHOSPHATASE 64 U/L (38-126); ANION GAP 9 (5-19); ASPARTATE AMINO TRANSFERASE 12 U/L (14-36); BILIRUBIN,DIRECT 0.3 mg/dL (0.0-0.4); BILIRUBIN,TOTAL 0.4 mg/dL (0.2-1.3); BLOOD UREA NITROGEN 13 mg/dL (7-20); C-REACTIVE PROTEIN 9.5 mg/L (<10.0); CALCIUM 9.5 mg/dL (8.4-10.2); CARBON DIOXIDE 29 mmol/L (22-30); CHLORIDE 98 mmol/L (98-107); GLUCOSE 211 mg/dL (75-110); TOTAL PROTEIN 7.7 g/dL (6.3-8.2)
[2019-07-26 10:33] LABS: ERYTHROCYTE SEDIMENTATION RATE 66 mm/hr (0-20)
== END ==
LOC: WC 09:27
PROVIDERS: ATTEND Nurse Practitioner Family
DX: E11.621 Type 2 diabetes mellitus with foot ulcer (principal); L97.512 Non-pressure chronic ulcer of other part of right foot with fat layer exposed
CPT/HCPCS: 36415; 80053; 83036; 85025; 85652; 86140

== ENCOUNTER → 2019-07-31 | Outpatient (CLI) | payer OTHER ==
[2019-07-31 13:44] LABS: A TYPE INFLUENZA AG NEGATIVE (NEGATIVE)
[2019-07-31 13:46] LABS: B INFLUENZA AG NEGATIVE (NEGATIVE)
--- NOTE | 2019-08-01 15:16 | PDOC RDC NOTE ---
RDC Note - Note Date Date: 08/01/19 Clinic Date and Primary Care Provider: MICHEAL KIRKLAND NP Allergy/ Laboratory: iodine [Iodine] Allergy (Verified 02/04/19 01:23) lisinopril Allergy (Verified 02/04/19 01:23) Penicillins Allergy (Verified 02/04/19 01:23) Sulfa (Sulfonamide Antibiotics) Allergy (Verified 02/04/19 01:23) 07/31/19 13:02 Throat Throat Culture - Final Group G Beta Streptococcus Greatly Reduced Normal Jo Influenza A (Rapid) NEGATIVE (NEGATIVE) 07/31/19 13:04 Influenza B (Rapid) NEGATIVE (NEGATIVE) 07/31/19 13:04 Group A Strep Rapid NEGATIVE (NEGATIVE) 07/31/19 13:04 Notes: Positive throat culture received, 08/01/2019 1430, positive for Group G beta strep. Notified patient by phone and obtained contact information for PCP that was not on file. Spoke with MA for [facility], [facility], notified of positive throat culture, and faxed report to them. They advised they will provide treatment and further follow-up at this point.
== END ==
LOC: RDC 12:40
PROVIDERS: ATTEND Registered Nurse
DX: Z20.828 Contact with and (suspected) exposure to other viral communicable diseases (principal)
CPT/HCPCS: 36415; 87070; 87077; 87635; 87804; 87880

== ENCOUNTER → 2020-02-08 | Outpatient (CLI) | payer OTHER ==
[2020-02-08 12:29] LABS: FREE T3 3.37 pg/mL (2.77-5.27); FREE T4 (FREE THYROXINE) 1.3 ng/dL (0.78-2.19)
[2020-02-08 12:42] LABS: THYROID STIMULATING HORMONE 0.85 uIU/mL (0.47-4.68)
[2020-02-08 13:17] LABS: FOLATE 9.82 ng/mL (>2.76)
== END ==
LOC: OD 10:38
PROVIDERS: ATTEND Specialist
DX: G62.9 Polyneuropathy, unspecified (principal); G47.33 Obstructive sleep apnea (adult) (pediatric)
CPT/HCPCS: 36415; 82607; 82746; 83036; 84439; 84443; 84481